=== PATIENT | female | born 1940 | race Caucasian/White ===

== ENCOUNTER 2024-12-27 17:04 | Inpatient (IN) | payer OTHER, SELFPAY ==
[2024-12-26] VITALS (14 sets, daily range): BP systolic 114–174; BP diastolic 68–104; BMI 28.2
[2024-12-26 11:56] LABS: % Basophils 0.2 % (0-2); % Eosinophils 0.1 % (0-6); % Immature Granulocytes 0.3 % (0-0.5); % Lymphocytes 14.6 % (20.5-51.1); % Monocytes 8.3 % (1.7-9.3); % Neutrophils 76.5 % (42.2-75.2); Absolute Lymphocytes 1.4 10^3/uL (1.2-3.4); Absolute Monocytes 0.8 10^3/uL (0.1-0.6); Absolute Neutrophils 7.1 10^3/uL (1.4-6.5); Hematocrit 40.8 % (37.0-47.0); Hemoglobin 13.8 g/dL (12.0-16.0); Mean Corp Hgb Conc. 33.8 g/dL (33.0-37.0); Mean Corpuscular Hgb 31.2 pg (27.0-31.0); Mean Corpuscular Volume 92.3 fL (81.0-99.0); Mean Platelet Volume 9.6 fL (7.4-10.4); Nucleated Red Blood Cells % 0 %; Platelet Count 247 10^3/uL (130-400); Red Blood Cell Count 4.42 10^6/uL (4.20-5.40); White Blood Cell Count 9.3 10^3/uL (4.8-10.8)
[2024-12-26 12:21] LABS: ALT (SGPT) 49 U/L (0-35); AST (SGOT) 39 U/L (14-36); Albumin 4.3 g/dl (3.5-5.0); Alkaline Phosphatase 159 U/L (38-126); Blood Urea Nitrogen 16 mg/dl (7-17); Calcium 9.3 mg/dl (8.4-10.2); Carbon Dioxide 26 mmol/L (22-30); Chloride 102 mmol/L (98-107); Glucose 143 mg/dl (70-99); NT-proBNP 5640 pg/ml; Potassium 4.2 mmol/L (3.5-5.1); Sodium 139 mmol/L (135-145); Troponin I 0.025 ng/ml; eGFR > 60.00
--- NOTE | 2024-12-26 12:25 | ED.GENMED ---
History of Present Illness
<Gretel Gonsales PA-C - Last Filed: 12/26/24 19:30>
General
Chief Complaint: Abdominal Symptoms
Source: patient and family
Time Seen by Provider: 12/26/24 12:02
History of Present Illness
History of Present Illness:
84yoF with a history of atrial fibrillation on Eliquis, sick sinus syndrome s/p pacemaker, hypertension, insulin dependent diabetes, and hypothyroidism presenting with her son for evaluation of shortness of breath. Symptoms began yesterday evening.
She did not initially disclose her symptoms to her son. He noticed that she was tachypneic while walking on the steps this morning. She denies any chest pain or palpitations. She does have some discomfort in her upper abdomen and abdominal
bloating which also began yesterday. She has chronic back pain which does seem to be worse.
Past History
<Gretel Gonsales PA-C - Last Filed: 12/26/24 19:30>
Past History
ED Past Medical History: Arrthythmia, HTN, NIDDM and Other (Stroke in 2014, tachybradycardia syndrome with pacemaker, paroxysmal atrial fib on Rythmol and Eliquis)
ED Past Surgical History: Other (PPM)
Social History
Tobacco: Non-smoker
Personal:
Living: with family
Family History
Family History: Unable to obtain
Phy Exam
<Gretel Gonsales PA-C - Last Filed: 12/26/24 19:30>
General Physical Exam
General Presentation: well appearing
General Skin: warm and dry
General Habitus: normal and elderly
General Mental: alert
ENT Exam
ENT Exam: normocephalic
Cardiovascular Exam
Cardiovascular Exam: no edema (Trace pitting edema in bilateral lower extremities), irregularly irregular and tachycardia
Pulmonary Exam
Pulmonary Exam: lungs clear, no rales, no crackles, no rhonchi and other (Tachypnea noted)
Gastrointestinal Exam
Gastrointestinal Exam: normal bowel sounds, soft, non distended and other (Minimal tenderness in epigastrium. Abdomen soft. No rebound or guarding. Normoactive bowel sounds.)
Neurological Exam
Neurological Exam: alert
Alden Coma Scale
Eye Opening: Spontaneous
Verbal Response: Oriented
Motor Response: Obeys Commands
GCS Total Score: 15
Skin Exam
Skin Exam: normal color and warm/dry
Psychiatric Exam
Psychiatric Exam: normal mood/affect
Course
<Gretel Gonsales PA-C - Last Filed: 12/26/24 19:30>
Orders/Labs/Results
Orders:
Orders
12/26/24 11:39
Electrocardiogram (*1) Urgent
Reason for Study: Chest Pain
EKG- Treatment ONCE
12/26/24 11:49
Complete Blood Count/With Diff Urgent
Comprehensive Metabolic Panel Urgent
Lipase Urgent
Magnesium Urgent
NT-proBNP Urgent
TSH Urgent
Comment: LIPASE,MAG,TSH ADDED ON BY FLOOR 12:20PM 12-26-24
Troponin I Urgent
12/26/24 12:07
Interrogate Pacemaker- Treatment ONCE
12/26/24 12:23
Add On- LAB Urgent
Tests Added?: lipase, magnesium, TSH
CR Chest - 2 Views Urgent
Comment:
Reason For Exam: SOB
US Abdomen Complete/Upper Urgent
Comment:
Reason For Exam: epigastric pain
12/26/24 12:36
Diltiazem HCl [Cardizem] 20 mg IV NOW STA
12/26/24 12:46
Electrocardiogram (*1) Urgent
Reason for Study: Shortness of Breath
EKG- Treatment ONCE
12/26/24 12:50
Aspirin Chewable [Low Strength Aspirin] 324 mg PO NOW STA
12/26/24 13:41
Furosemide [Lasix] 40 mg IV NOW STA
12/26/24 Dinner
1800 calorie (15 carb) Diabetic
At Your Request: Full Participation
Does patient need a safe tray?: No
Reason for opting out of Board Hammer Operator order writing: Provider Decision
Fluid Restriction: 1800 mL/day (60 oz)
Diabetic Diet: Sodium, 2 Gram
Cholesterol Lowering
At Your Request: Full Participation
Does patient need a safe tray?: No
Reason for opting out of Board Hammer Operator order writing: Provider Decision
Fluid Restriction: 1500 mL/day (50 oz)
Cholesterol Lowering: Sodium, 2 Gram
12/26/24 15:20
Code Status As Directed
Resuscitation Status: Full Code
Activity As Directed
Activity Level: Ambulate
As Tolerated
Notify MD As Directed
Notify physician if: Bridge Admission orders placed.
Notify attending physician:
-- upon arrival to unit
OR
-- when patient is identified as an ED hold
Vital Signs As Directed
Frequency: Per unit guidelines
12/26/24 15:22
Pulse Ox/spot Check [RESP] Routine
Quantity: 1
Special Instructions: check O2 sat Q8H and at each change in oxygen liter flow and FiO2.
12/26/24 16:18
Ibuprofen [Motrin] 400 mg PO DAILYPRN PRN
12/26/24 16:20
Dextrose 50%-Water [Dextrose 50% Syringe] 12.5 grams IV [id number] PRN
Glucagon [GlucaGen] 1 mg IM PRN PRN
12/26/24 16:21
Bedside Glucose Monitoring As Directed
Frequency: AC&HS
Additional Instructions:: Change to q6h if pt on TPN, tube feeding or not eating
12/26/24 16:26
Admit Patient As Directed
Co-Sign Provider:
Level of Care: Observation services
Assign to:: Telemetry
Physician / Group: Duane Goddard MD
Diagnosis: Acute heart failure, Unknown type
Reason for Telemetry: Medication for Arrhythmia
Date to Stop Telemetry: 12/28/24
Time to Stop Telemetry: 11:00
Expected length of stay greater than two midnights?: No
ELOS- Estimated Length of Stay in days: 1
Reason for Overnight Stay: New Dysrhythmia
Polyethylene Glycol Powder [Miralax] 17 grams PO DAILYPRN PRN
12/26/24 16:27
Docusate W/Senna [Senokot-S] 1 tablet PO DAILYPRN PRN
PRN Pain Medication Management As Directed
May give lesser potent ordered pain med per pt: Yes
preference::
Protocol:: Medication orders for pain may be administered in a
manner that supports deferring to patient preference
when the pt is:
- Requesting an ordered lesser potent pain medication.
Least to most potent pain medications are defined
as: acetaminophen < NSAID < tramadol < opioids
(morphine, oxycodone, hydromorphone).
- Requesting a lesser dose of the same medication IF
ORDERED.
- Requesting a less intrusive route of administration
if both routes are prescribed by the provider (PO <
IV).
12/26/24 16:28
Magnesium Hydroxide [Milk of Magnesia] 30 ml PO NOW STA
12/26/24 16:30
Insulin Aspart Corrective Low [Novolog Flexpen-Low Resistance] See Protocol SC AC
Insulin Aspart Pen [Novolog Flexpen] 6 units SC DAILY@1630
digestive enzymes 1 cap PO AC
12/26/24 17:00
Flush (0.9% Sodium Chloride) [Flush (Nss)] See Dose Instructions IV PER PROTOCOL
Propafenone HCl [Rythmol] 150 mg PO Q8
12/26/24 18:00
Atorvastatin [Lipitor] 10 mg PO QPM
12/26/24 20:00
Apixaban [Eliquis] 5 mg PO BID
Metoprolol [Lopressor] 12.5 mg PO BID
12/26/24 22:00
Insulin Glargine Lantus [Lantus] 18 units Subcutaneous Insulin Syringe [Syringe-Insulin] 0 unit SC HS
12/27/24 06:00
Hemoglobin A1c [Glycohemoglobin (HgbA1c)] IN AM
Levothyroxine [Synthroid] 50 mcg PO DAILY @ 0600
12/27/24 07:30
Insulin Aspart Pen [Novolog Flexpen] 6 units SC DAILY@0730
12/27/24 08:00
Lactobac/Bifidobac [Visbiome] 1 cap PO DAILY
Multivitamin [Theragran] 1 tablet PO DAILY
12/27/24 11:30
Insulin Aspart Pen [Novolog Flexpen] 6 units SC DAILY@1130
12/28/24 11:00
DC Protocol for Telemetry ONCE
Abnormal Lab Results
12/26/24
11:49
MCH 31.2 H pg
(27.0-31.0)
Absolute Neuts (auto) 7.1 H 10^3/uL
(1.4-6.5)
Absolute Monos (auto) 0.8 H 10^3/uL
(0.1-0.6)
Neutrophils % 76.5 H %
(42.2-75.2)
Lymphocytes % 14.6 L %
(20.5-51.1)
Glucose 143 H mg/dl
(70-99)
AST 39 H U/L
(14-36)
ALT 49 H U/L
(0-35)
Alkaline Phosphatase 159 H U/L
(38-126)
TSH 6.04 H uIU/ml
(0.47-4.68)
12/26/24 11:49
12/26/24 11:49
Vital Signs
Initial and Last Documented VS:
Initial Vital Signs
Temp Pulse Resp BP Pulse Ox
97.9 F 66 19 151/93 94
12/26/24 11:35 12/26/24 11:35 12/26/24 11:35 12/26/24 11:35 12/26/24 11:35
Last Documented Vital Signs
Temp Pulse Resp BP Pulse Ox
97.9 F 110 29 128/93 95
12/26/24 11:35 12/26/24 19:00 12/26/24 19:00 12/26/24 19:00 12/26/24 19:00
<Cecelia Dow MD - Last Filed: 12/26/24 13:37>
Orders/Labs/Results
Orders:
Orders
12/26/24 11:39
Electrocardiogram (*1) Urgent
Reason for Study: Chest Pain
EKG- Treatment ONCE
12/26/24 11:49
Complete Blood Count/With Diff Urgent
Comprehensive Metabolic Panel Urgent
Lipase Urgent
Magnesium Urgent
NT-proBNP Urgent
TSH Urgent
Comment: LIPASE,MAG,TSH ADDED ON BY FLOOR 12:20PM 12-26-24
Troponin I Urgent
12/26/24 12:07
Interrogate Pacemaker- Treatment ONCE
12/26/24 12:23
Add On- LAB Urgent
Tests Added?: lipase, magnesium, TSH
CR Chest - 2 Views Urgent
Comment:
Reason For Exam: SOB
US Abdomen Complete/Upper Urgent
Comment:
Reason For Exam: epigastric pain
12/26/24 12:36
Diltiazem HCl [Cardizem] 20 mg IV NOW STA
12/26/24 12:46
Electrocardiogram (*1) Urgent
Reason for Study: Shortness of Breath
EKG- Treatment ONCE
12/26/24 12:50
Aspirin Chewable [Low Strength Aspirin] 324 mg PO NOW STA
12/26/24 13:41
Furosemide [Lasix] 40 mg IV NOW STA
12/26/24 Dinner
1800 calorie (15 carb) Diabetic
At Your Request: Full Participation
Does patient need a safe tray?: No
Reason for opting out of Board Hammer Operator order writing: Provider Decision
Fluid Restriction: 1800 mL/day (60 oz)
Diabetic Diet: Sodium, 2 Gram
Cholesterol Lowering
At Your Request: Full Participation
Does patient need a safe tray?: No
Reason for opting out of Board Hammer Operator order writing: Provider Decision
Fluid Restriction: 1500 mL/day (50 oz)
Cholesterol Lowering: Sodium, 2 Gram
12/26/24 15:20
Code Status As Directed
Resuscitation Status: Full Code
Activity As Directed
Activity Level: Ambulate
As Tolerated
Notify MD As Directed
Notify physician if: Bridge Admission orders placed.
Notify attending physician:
-- upon arrival to unit
OR
-- when patient is identified as an ED hold
Vital Signs As Directed
Frequency: Per unit guidelines
12/26/24 15:22
Pulse Ox/spot Check [RESP] Routine
Quantity: 1
Special Instructions: check O2 sat Q8H and at each change in oxygen liter flow and FiO2.
12/26/24 16:18
Ibuprofen [Motrin] 400 mg PO DAILYPRN PRN
12/26/24 16:20
Dextrose 50%-Water [Dextrose 50% Syringe] 12.5 grams IV [id number] PRN
Glucagon [GlucaGen] 1 mg IM PRN PRN
12/26/24 16:21
Bedside Glucose Monitoring As Directed
Frequency: AC&HS
Additional Instructions:: Change to q6h if pt on TPN, tube feeding or not eating
12/26/24 16:26
Admit Patient As Directed
Co-Sign Provider:
Level of Care: Observation services
Assign to:: Telemetry
Physician / Group: Duane Goddard MD
Diagnosis: Acute heart failure, Unknown type
Reason for Telemetry: Medication for Arrhythmia
Date to Stop Telemetry: 12/28/24
Time to Stop Telemetry: 11:00
Expected length of stay greater than two midnights?: No
ELOS- Estimated Length of Stay in days: 1
Reason for Overnight Stay: New Dysrhythmia
Polyethylene Glycol Powder [Miralax] 17 grams PO DAILYPRN PRN
12/26/24 16:27
Docusate W/Senna [Senokot-S] 1 tablet PO DAILYPRN PRN
PRN Pain Medication Management As Directed
May give lesser potent ordered pain med per pt: Yes
preference::
Protocol:: Medication orders for pain may be administered in a
manner that supports deferring to patient preference
when the pt is:
- Requesting an ordered lesser potent pain medication.
Least to most potent pain medications are defined
as: acetaminophen < NSAID < tramadol < opioids
(morphine, oxycodone, hydromorphone).
- Requesting a lesser dose of the same medication IF
ORDERED.
- Requesting a less intrusive route of administration
if both routes are prescribed by the provider (PO <
IV).
12/26/24 16:28
Magnesium Hydroxide [Milk of Magnesia] 30 ml PO NOW STA
12/26/24 16:30
Insulin Aspart Corrective Low [Novolog Flexpen-Low Resistance] See Protocol SC AC
Insulin Aspart Pen [Novolog Flexpen] 6 units SC DAILY@1630
digestive enzymes 1 cap PO AC
12/26/24 17:00
Flush (0.9% Sodium Chloride) [Flush (Nss)] See Dose Instructions IV PER PROTOCOL
Propafenone HCl [Rythmol] 150 mg PO Q8
12/26/24 18:00
Atorvastatin [Lipitor] 10 mg PO QPM
12/26/24 20:00
Apixaban [Eliquis] 5 mg PO BID
Metoprolol [Lopressor] 12.5 mg PO BID
12/26/24 22:00
Insulin Glargine Lantus [Lantus] 18 units Subcutaneous Insulin Syringe [Syringe-Insulin] 0 unit SC HS
12/27/24 06:00
Hemoglobin A1c [Glycohemoglobin (HgbA1c)] IN AM
Levothyroxine [Synthroid] 50 mcg PO DAILY @ 0600
12/27/24 07:30
Insulin Aspart Pen [Novolog Flexpen] 6 units SC DAILY@0730
12/27/24 08:00
Lactobac/Bifidobac [Visbiome] 1 cap PO DAILY
Multivitamin [Theragran] 1 tablet PO DAILY
12/27/24 11:30
Insulin Aspart Pen [Novolog Flexpen] 6 units SC DAILY@1130
12/28/24 11:00
DC Protocol for Telemetry ONCE
Abnormal Lab Results
12/26/24
11:49
MCH 31.2 H pg
(27.0-31.0)
Absolute Neuts (auto) 7.1 H 10^3/uL
(1.4-6.5)
Absolute Monos (auto) 0.8 H 10^3/uL
(0.1-0.6)
Neutrophils % 76.5 H %
(42.2-75.2)
Lymphocytes % 14.6 L %
(20.5-51.1)
Glucose 143 H mg/dl
(70-99)
AST 39 H U/L
(14-36)
ALT 49 H U/L
(0-35)
Alkaline Phosphatase 159 H U/L
(38-126)
TSH 6.04 H uIU/ml
(0.47-4.68)
12/26/24 11:49
12/26/24 11:49
Vital Signs
Initial and Last Documented VS:
Initial Vital Signs
Temp Pulse Resp BP Pulse Ox
97.9 F 66 19 151/93 94
12/26/24 11:35 12/26/24 11:35 12/26/24 11:35 12/26/24 11:35 12/26/24 11:35
Last Documented Vital Signs
Temp Pulse Resp BP Pulse Ox
97.9 F 110 29 128/93 95
12/26/24 11:35 12/26/24 19:00 12/26/24 19:00 12/26/24 19:00 12/26/24 19:00
<Gretel Gonsales PA-C - Last Filed: 12/26/24 19:30>
MDM/Problems Addressed
Differential Diagnosis Includes:
84yoF here with SOB and epigastric discomfort since last night. She is mildly tachycardic during exam with HR in the 110s. She is mildly tachypneic but is oxygenating well on room air. There is trace pitting edema to lower extremities on exam.
Differential diagnosis includes but not limited to: ACS, arrhythmia, CHF, doubt PE as patient is anticoagulated
Initial ED plan: EKG from triage reviewed which appears consistent with atrial flutter with HR of 126. There are nonspecific ST changes which are possibly rate related. Check cardiac labs, TSH, magnesium, lipase, CXR, and upper abdominal ultrasound.
<Gretel Gonsales PA-C - Last Filed: 12/26/24 19:30>
*EKG
Interpreted by ED Provider?: Yes
EKG Intrepretation Date: 12/26/24
Heart Rate: 126
Rate: tachycardiac
Rhythm: atrial flutter and PVC's
[place]: normal axis
Interval: normal interval
QRS Pattern: normal QRS
Ischemia: non-specific ST changes
*Critical Care Note
Total Time (30-74mins, 75-104mins- exclusive of procedures): Not Applicable
<Gretel Gonsales PA-C - Last Filed: 12/26/24 19:30>
Update Note
Update Note:
Labs reveal a BNP of 5000. Troponin is 0.025. Chest x-ray does not show any obvious pulmonary edema although small bilateral effusions noted on abdominal ultrasound. Repeat EKG continues to show nonspecific ST/T wave changes. 40mg IV Lasix
ordered and patient admitted for further management.
ED Attending Note
<Gretel Gonsales PA-C - Last Filed: 12/26/24 19:30>
-
Portions of this chart may have been created with voice recognition software.� Occasional wrong word or��sound alike� substitutions may have occurred due to the inherent limitations of voice recognition software.
<Cecelia Dow MD - Last Filed: 12/26/24 13:37>
ED Attending Note
Patient seen and examined by attending physician: Yes
I performed the substantive portion of visit, reviewed & personally made and approve the management plan that is documented in note by myself or ULISES.: Yes
ED Attending Note:
84-year-old female who is typically very active goes to the gym regularly etc. who was noted to develop shortness of breath last night after 8 PM. When she came down this morning to her son she was noted to be tachypneic and complained of dyspnea
which prompted her visit here. Since arrival she feels much better. She was also describing discomfort in the epigastric area but wonders if it is related to recent bouts of constipation. Patient denies leg swelling, fever, chills. She does
occasionally have a cough and feels like she needs to bring up phlegm but cannot. On exam patient overall well-appearing, smiling, pleasant. Heart irregularly irregular. Lungs very faint rales noted at bases bilaterally. No leg swelling noted.
Long discussion with son who is bedside and a fellow ED physician, we mutually suspect mild heart failure, rule out ACS. I think PE is extremely unlikely given patient's full anticoagulation. Ultrasound pending regarding epigastric discomfort and
mild LFT abnormalities. Repeat ECG not consistent with STEMI or acute ACS. Patient also denies epigastric discomfort or any chest pain.
Discharge Plan
Departure
Patient Disposition: Admit
Date of Disposition: 12/26/24
Time of Disposition: 13:45
Presentation/result/management discussed w/ accepting MD/DO: Hospitalist
Discharge Problem:
Atrial fibrillation with RVR, Acute CHF (congestive heart failure)
Interventions
Interventions:
*Risk Screen - Suicide Last Done: 12/26/24 11:38
*General Assessment Last Done: 12/26/24 11:38
*Neglect/Abuse Screening Last Done: 12/26/24 11:38
*ED COVID-19 Vaccine History Last Done: 12/26/24 11:38
JQ-Vajcow-[id number] Assessment Last Done: 12/26/24 12:22
[2024-12-26 12:38] LABS: Lipase 26 U/L (23-300); Magnesium 1.7 mg/dl (1.6-2.3)
[2024-12-26] MEDS: LOW STRENGTH ASPIRIN 324 MG PO (13:05)
[2024-12-26] MEDS: LASIX 40 MG IV (14:23)
--- NOTE | 2024-12-26 16:25 | HPS.HSE ---
Addendum entered and electronically signed by Duane Goddard MD 12/27/24 00:12:
Attending Addendum-
I performed a history and physical exam of the patient and discussed his management with the resident. I reviewed the resident's note and agree with the documented findings and plan of care CC/HPI- Presents to ED with one day worsening SOB LANE
palpitations and constipation s/p Imodium. Currently complains of increased urination s/p lasix. Feels that SOB has improved. Denies CP. Full 12 point ROS reviewed and negative except as documented Exam- vitals reviewed in EMR GEN-NAD Heart irreg
irreg tachy lungs fine crackles at bases abd soft mildly distended LE no edema
Plan:
# AE HFpEF
- from rapid a flutter
- EKG personally reviewed -consistent with atrial flutter
- Troponin negative
- As per the son, last echo was a year ago, and it did not show any decrease in ejection fraction
- s/p IV lasix x 1
- obtain records from cards
# Atrial flutter with RVR
-Patient is currently on metoprolol and propafenone
-given IV dilt x 1 with improvement
-Admit to telemetry
-Follows with Dr. Oconnor-check records
#Epigastric pain
-secondary to constipation
-Abdominal ultrasound did not suggest any small bowel obstruction
-Relieve constipation
#Diabetes mellitus-continue home dose of insulin
#Hypothyroidism-continue home dose of levothyroxine, check TSH
#Back pain/Spinal Stenosis - PT/OT, pain control
#HLD- cont atorvastatin
CODE STATUS full code
DVT prophylaxis-on Eliquis 5 mg twice daily
ACP
Patient consented to discuss, was with son , time spent explanation of advance directives, changes in health status, patient�s health care wishes if the patient becomes unable to make health decisions, goals of care, code status, and prognosis- 16
minutes
Time spent coordinating care, review of plan of care with resident, personally reviewed previous records in EMR, med rec, labs, radiology, d/w nursing, family total time documented is exclusive of any additional time listed that was spent in advance
care planning discussion -� 75 minutes
Original Note:
Family Physician
-
Family Physician: Alexandre Doran
Chief Complaint
-
Shortness of breath
History of Present Illness
Patient is an 84-year-old female with past medical history of tacky bradycardia arrhythmias, paroxysmal atrial flutter, paroxysmal atrial fibrillation with permanent pacemaker in place, hypertension, diabetes mellitus, stroke, back surgery for
spinal cord compression, and bladder uplift surgery who presented to the emergency department with complaint of shortness of breath for 1 day. She resides with her son, who noticed that the patient was short of breath and was feeling anxious. Her
son is an emergency physician, who assessed the situation and decided to bring her to the emergency department. An EKG done in the emergency department showed atrial flutter Pattern and a heart rate of 130 was noted.
In addition, she also complained of epigastric pain, that was nonradiating, nonprogressive, and crampy in nature. She also mentioned that she had started Imodium to help with stool incontinence which resulted in constipation and she had not had a
bowel movement in a week. She did had flatus and some pellet-like stools. She denies any nausea, vomiting, abdominal pain, blood per rectum, fever, weight loss or, any recent medications.
She also complained of back pain along with some discomfort in hips.
Medical History
Past Medical History
Past Medical History: Reports Arrhythmia (Sick sinus syndrome, paroxysmal atrial flutter/atrial fibrillation permanent pacemaker in place), CVA, HTN and IDDM
Past Surgical History: Reports Urological (Bladder uplift surgery) and Other (Spinal decompression surgery)
Social History
Tobacco: Non-smoker
Alcohol: None
Drug: None
Living: With Family
Employment: Not Employed
Family History
Family History: Not pertinent (Grandfather had colon cancer)
Allergies / Home Medications
Allergies reflects when Allergies were last updated in [facility].
Home Medications with original date entered in [facility]
Allergy/Medication List:
Allergies
Allergy/AdvReac Type Severity Reaction Status Date / Time
No Known Allergies Allergy Unverified 12/26/24 11:38
Home Medications
apixaban 5 mg tablet (Eliquis) 5 mg PO BID 06/03/14
atorvastatin 10 mg tablet 10 mg PO QPM 01/04/20
levothyroxine 50 mcg tablet 50 mcg PO DAILY 01/04/20
metoprolol tartrate 25 mg tablet 12.5 mg PO BID 01/04/20
propafenone 150 mg tablet 150 mg PO Q8H 01/04/20
Lactobac no.2-Bifidobac no.1-S. thermo 112.5 billion cell capsule (Visbiome) 1 cap PO DAILY 12/26/24
digestive enzymes 1 cap PO AC 12/26/24
ibuprofen 400 mg tablet 400 mg PO DAILYPRN PRN mild pain 12/26/24
insulin aspar prt-insulin aspart 100 unit/mL (70-30) subcutaneous soln (Novolog Mix 70-30 U-100 Insuln) 12 unit SC QPM 12/26/24
insulin aspar prt-insulin aspart 100 unit/mL (70-30) subcutaneous soln (Novolog Mix 70-30 U-100 Insuln) 18 unit SC DAILY 12/26/24
insulin aspart U-100 100 unit/mL subcutaneous solution 5 - 10 sliding scale dose SC AC 12/26/24
lactase 3,000 unit tablet (Lactaid) 3,000 unit PO AC 12/26/24
therapeutic multivitamin 1 tab PO DAILY 12/26/24
Review of Systems
-
A 12 point ROS was completed and negative except as noted: Yes
Physical Exam
Vital Signs
Vital Signs
Temp Pulse Resp BP Pulse Ox
97.9 F 103 16 137/88 81
12/26/24 11:35 12/26/24 15:30 12/26/24 15:30 12/26/24 15:12 12/26/24 15:12
Physical Exam
General: Well Developed, Well Nourished, No Apparent Distress, Comfortable and Conversant
HEENT: NormoCephalic, Anicteric, Moist mucous membranes and [place] Conjunctivae
Respiratory: Clear and Non Labored Respirations
Cardiac: S1/S2, Irregular Rhythm (Irregularly irregular rhythm) and Tachycardia
GI: Soft, Non Tender and Normal Bowel Sounds
Musculoskeletal: No Clubbing, No Cyanosis and No Edema
Skin: Warm and Dry
Neuro: Awake, Oriented and No Motor Deficits
Psych: Calm and Intact Judgment/Insight
Laboratory Results
-
12/26/24 11:49
12/26/24 11:49
Laboratory Results
Total Bilirubin 1.0 mg/dl (0.2-1.3) 12/26/24 11:49
AST 39 U/L (14-36) H 12/26/24 11:49
ALT 49 U/L (0-35) H 12/26/24 11:49
Alkaline Phosphatase 159 U/L (38-126) H 12/26/24 11:49
Troponin I 0.025 ng/ml 12/26/24 11:49
Lipase 26 U/L (23-300) 12/26/24 11:49
Impression/Plan
-
IMPRESSION:
Patient is an 84-year-old female with past medical history of arrhythmias including sick sinus syndrome, bradycardia, atrial flutter, atrial fibrillation, essential hypertension, diabetes mellitus, stroke who presented to the emergency room with
shortness of breath and palpitations.
Assessment/PLAN:
Shortness of breath
Most likely secondary to questionable heart failure, pleural effusion, acute on chronic heart failure, hyperthyroidism, anxiety, or less likely pulmonary embolism
EKG done-consistent with atrial flutter
TSH-pending
Troponin negative
proBNP-greater than 5000
As per the son, last echo was a year ago, and it did not show any decrease in ejection fraction
Abdominal ultrasound showed small bilateral pleural effusion
Currently patient is breathing comfortably, with no use of accessory muscles and maintaining oxygen saturation on room air
Atrial flutter
History of known atrial fibrillation
Patient is currently on rate control, rhythm control and anticoagulation
Presented with a heart rate in 130s- received 20 mg IV diltiazem and 40 mg oral Lasix
Heart rate around 100
Admit to telemetry and observe for rhythm
Follows up with Dr. Oconnor on outpatient basis
Epigastric pain
Could be secondary to constipation, stress, myocardial infarction, arrhythmia
Troponin negative
Had last bowel movement 1 week ago-after that has been having on and off pellet-like stools with flatus
Patient tried to control diarrhea with loperamide that could be leading to constipation/overflow diarrhea
History and examination benign
Abdominal ultrasound did not suggest any small bowel obstruction
Relieve constipation
Other medical conditions
Diabetes mellitus-continue home dose of insulin
Hypothyroidism-continue home dose of thyroxine
Back pain -relieve constipation and reevaluate
CODE STATUS full code
DVT prophylaxis-on Eliquis 5 mg twice daily
[2024-12-26 16:52] LABS: TSH 6.04 uIU/ml (0.47-4.68)
[2024-12-26] MEDS: LIPITOR 10 MG PO (18:30)
[2024-12-26] MEDS: RYTHMOL PO (20:46)
[2024-12-26 21:47] LABS: Glucose - Point of Care 135 mg/dl (70-99)
[2024-12-26] MEDS: LOPRESSOR 12.5 MG PO (21:48)
[2024-12-26] MEDS: ELIQUIS 5 MG PO (21:48)
[2024-12-27] MEDS: RYTHMOL 150 MG PO ×2 (01:16→08:44)
[2024-12-27] MEDS: MELATONIN 5 MG PO ×2 (01:30→20:34)
[2024-12-27 03:55] VITALS: BP 99/58
[2024-12-27] MEDS: SYNTHROID 50 MCG PO (05:10)
[2024-12-27 06:00] VITALS: BMI 28.2
[2024-12-27 07:11] VITALS: BP 147/90
[2024-12-27 07:22] LABS: % Basophils 0.3 % (0-2); % Eosinophils 0.8 % (0-6); % Immature Granulocytes 0.4 % (0-0.5); % Lymphocytes 24.3 % (20.5-51.1); % Monocytes 11.2 % (1.7-9.3); Absolute Eosinophils 0.1 10^3/uL (0-0.7); Absolute Lymphocytes 1.9 10^3/uL (1.2-3.4); Absolute Monocytes 0.9 10^3/uL (0.1-0.6); Hematocrit 39.1 % (37.0-47.0); Hemoglobin 13.5 g/dL (12.0-16.0); Mean Corp Hgb Conc. 34.5 g/dL (33.0-37.0); Mean Corpuscular Volume 89.9 fL (81.0-99.0); Nucleated Red Blood Cells % 0 %; Platelet Count 238 10^3/uL (130-400); Red Blood Cell Count 4.35 10^6/uL (4.20-5.40); Red Cell Dist. Width 12.8 % (11.5-14.5); White Blood Cell Count 7.9 10^3/uL (4.8-10.8)
[2024-12-27 07:44] LABS: Troponin I 0.018 ng/ml
[2024-12-27 07:56] LABS: ALT (SGPT) 44 U/L (0-35); AST (SGOT) 40 U/L (14-36); Albumin 3.6 g/dl (3.5-5.0); Alkaline Phosphatase 128 U/L (38-126); Blood Urea Nitrogen 15 mg/dl (7-17); Calcium 8.9 mg/dl (8.4-10.2); Carbon Dioxide 26 mmol/L (22-30); Chloride 101 mmol/L (98-107); Estimated Creatinine Clearance 52 ml/min; Glucose 234 mg/dl (70-99); Potassium 4.5 mmol/L (3.5-5.1); Sodium 135 mmol/L (135-145); Total Protein 6.5 g/dl (6.3-8.2); eGFR > 60.00
--- NOTE | 2024-12-27 07:57 | W.PN.HOSP.TC ---
Addendum entered and electronically signed by Duane Goddard MD 12/27/24 23:46:
Attending Addendum-
I performed a history and exam of the patient and discussed his management with the resident. I reviewed the resident's note and agree with the documented findings and plan of care S: Seen with son present. Still constipated. Denies LANE SOB PND or
orthopnea. Denies CP. Full 12 point ROS reviewed and negative except as documented Exam- vitals reviewed in EMR GEN-NAD Heart irreg irreg 10/27 SM @ apex lungs- fine crackles at bases abd soft mildly distended pos BS LE no edema
Plan:
# AE HF p->r EF - NEW
- likely from rapid a flutter
- Troponin negative
- check ECHO 12/27-
Normal left ventricular chamber size. Severely reduced left ventricular systolic function. Left ventricular ejection fraction is 25% Global hypokinesis.
Thickened mitral valve leaflets. Moderate mitral regurgitation.
- most recent ECHO 2013!
- cont IV lasix x 1 additional dose start PO in am
- cards consult appreciated start toprol XL and losartan
- strict I and O daily weights fluid restrict
- start farxiga
# Atrial flutter with RVR
- now rate controlled
- Patient is currently on metoprolol and propafenone?
- transition to Toprol XL
- start amiodarone loading dose
- allow Rythmol washout
- cont eliquis
- likely CV w/o PENNY on 12/29 if doesn't convert
#Epigastric pain
-secondary to constipation
-Abdominal ultrasound did not suggest any small bowel obstruction
-Relieve constipation give enema x 1
#Diabetes mellitus-uncontrolled, HBA1c- 9.0! increase home dose of insulin 70/30 (10/08) monitor closely add farxiga
#Hypothyroidism-continue home dose of levothyroxine, TSH mildly elevated, would repeat as OP in 4-6 weeks
#Back pain/Spinal Stenosis - PT/OT, pain control
#HLD- cont atorvastatin
CODE STATUS full code
DVT prophylaxis-Eliquis
Time spent coordinating care, review of plan of care with resident, personally reviewed records in EMR, med rec, consults, notes, labs, radiology, d/w nursing, POA daughter and cards � 55 mins
Original Note:
Today's Communication/Plan
-
Releive constipation
Echocardiography
Cardiology consult
Add Farxiga and increase insulin to help with diabetes control
Assessment / Plan
Assessment / Plan
IMPRESSION:
Patient is an 84-year-old female with past medical history of arrhythmias including sick sinus syndrome, bradycardia, atrial flutter, atrial fibrillation, essential hypertension, diabetes mellitus, stroke who presented to the emergency room with
shortness of breath and palpitations.
Assessment/PLAN:
Acute exacerbation of heart failure with reduced ejection fraction
EKG done-consistent with atrial flutter
Echocardiography-EF reduced at 25% with global hypokinesis-New event
Cardiology consult appreciated-patient started on metoprolol extended release due to cardiomyopathy, amiodarone 200 mg twice daily, losartan 25 mg with holding parameters
Add Farxiga for dual benefits with blood sugar control and heart failure
Input output monitoring, pressure Daily weight checks
Follow electrolytes and clinical status outpatient to avoid drying out the patient
Troponin negative
proBNP-greater than 5000
As per the son, last echo was a year ago, and it did not show any decrease in ejection fraction
Abdominal ultrasound showed small bilateral pleural effusion
Rapid atrial flutter
History of known atrial fibrillation
Patient is currently on rate control, rhythm control and anticoagulation
Presented with a heart rate in 130s- received 20 mg IV diltiazem and 40 mg oral Lasix
Heart rate stable in 80s
No arrythmmia overnight
Continue to monitor
Follows up with Dr. Oconnor on outpatient basis
Epigastric pain
Could be secondary to constipation, stress, myocardial infarction, arrhythmia
Troponin negative
Had last bowel movement 1 week ago-after that has been having on and off pellet-like stools with flatus
Patient tried to control diarrhea with loperamide that could be leading to constipation/overflow diarrhea
History and examination benign
Abdominal ultrasound did not suggest any small bowel obstruction
enema and strong bowel regimen
Relieve constipation
Other medical conditions
Diabetes mellitus- HbA1c 9-increased 3 units of insulin 70/30 in the morning and evening dose, add Farxiga
Hypothyroidism-continue home dose of thyroxine
Back pain -relieve constipation and reevaluate
CODE STATUS full code
DVT prophylaxis-on Eliquis 5 mg twice daily
Anticipated Discharge: 24 - 48 hours
Subjective/Interval History
-
Date of Service: December 27, 2024
mechanist [id number]
Resting comfortably, no shortness of breath, no palpitations, maintaining saturations on room air
Complains of bloating and constipation-3 days
Objective Data
-
Labs:
Laboratory Results
12/27/24
07:01
WBC 7.9
Hgb 13.5
Hct 39.1
Plt Count 238
Sodium 135
Potassium 4.5
Chloride 101
Carbon Dioxide 26
BUN 15
Creatinine 0.7
Glucose 234 H
Calcium 8.9
Total Bilirubin 1.0
AST 40 H
ALT 44 H
Alkaline Phosphatase 128 H
Vital Signs:
Vital Signs
Temp Pulse Resp BP Pulse Ox
98.6 F 75 16 99/58 95
12/27/24 03:55 12/27/24 03:55 12/27/24 03:55 12/27/24 03:55 12/27/24 03:55
Review of Systems
-
Abdomen/GI: Reports Constipated and Bloated
Physical Exam
-
General: Well Developed, Well Nourished and No Apparent Distress
HEENT: Normocephalic, Atraumatic and Moist Mucous Membranes
Respiratory: Decreased Breath Sounds (at lung bases)
Cardiac: Irregular Rhythm (irregularly irregular), Tachycardic and Other (no murmurs or gallops, orthopnea)
GI: Soft, Normal Bowel Sounds and Distended (mildy)
Musculoskeletal: No Clubbing, No Cyanosis and No Edema
Skin: Warm and Dry
Neuro: Awake, Oriented and No Motor Deficits
Psych: Calm
[2024-12-27 08:23] LABS: Glucose - Point of Care 294 mg/dl (70-99)
[2024-12-27] MEDS: NOVOLOG FLEXPEN-HIGH RESISTANCE 7 UNITS SC ×2 (08:40→11:24)
[2024-12-27] MEDS: LOPRESSOR 12.5 MG PO (08:42)
[2024-12-27] MEDS: VISBIOME 1 CAP PO (08:42)
[2024-12-27] MEDS: LACTAID 1 CAPSULE PO ×3 (08:42→17:42)
[2024-12-27] MEDS: MILK OF MAGNESIA 30 ML PO (08:42)
[2024-12-27] MEDS: ELIQUIS 5 MG PO ×2 (08:42→20:25)
[2024-12-27] MEDS: THERAGRAN 1 TABLET PO (08:42)
[2024-12-27 09:58] LABS: Glucose - Point of Care 258 mg/dl (70-99)
[2024-12-27] MEDS: NOVOLOG MIX 70/30 FLEXPEN 18 UNITS SC (09:59)
[2024-12-27 11:10] VITALS: BP 110/67
[2024-12-27 11:23] LABS: Glucose - Point of Care 250 mg/dl (70-99)
[2024-12-27] MEDS: MIRALAX 17 GRAMS PO (11:24)
[2024-12-27] MEDS: SENOKOT-S 1 TABLET PO (11:26)
--- NOTE | 2024-12-27 11:52 | CON.CAR ---
Addendum entered and electronically signed by Denver Morgan MD 12/27/24 16:04:
Patient seen and examined
Agree with ANT Li's note and assessment
Agree with ANT Li's plan
Reviewed the patient's device interrogation demonstrating greater than 3 years of battery and noting onset of typical appearing atrial flutter by ECG for approximately 11 days on the patient's device. She has had symptoms and signs of congestive
heart failure and her son who is a physician brought her to the emergency room due to noticing increased dyspnea. There she was noted to have an elevated proBNP although she examines today after doses of IV Lasix to nearing euvolemia without change
in renal insufficiency. She tells me that her breathing is much better although her [place] is somewhat limited in my [place] Citizen is somewhat limited.
I did have a phone conversation with her son who is an ER physician at [place] in [place]. I took time to explain plan of care and he is in full agreement.
Physical exam:
Alert and orient x 3
Nonfocal neurologically
JVP 6 to 7 cm
Cor is irregularly irregular without murmur rub or gallop
Lungs are diminished but no rales or appreciable on exam
Abdomen soft nontender positive bowel sounds
Trace extremity edema
Telemetry reviewed with occasional PVCs and periods of bigeminy
EKG reviewed
Chest x-ray personally reviewed
Labs personally reviewed
PCP: Dr. Doran
Card: Dr. John Akhtar
Impression:
Admitted with acute HF and atrial flutter 12/26/24
Acute HFrEF
Newly diagnosed CM EF 25% by echo 12/27/24
Paroxysmal typical atrial flutter
since 12/16/24 by device check in the ER 12/26/24Paroxysmal Afib
Chronic Eliquis OAC
Chronic propafenone therapy
Medtronic DC PPM
HTN
DM 2
Echo 12/15/2013: EF 55 to 60%, mild MR, trace aortic insufficiency
Echo 12/27/2024: EF 25%, global hypokinesis, moderate MR, mild TR
Plan:
-Her last dose of propafenone was this morning December 27. We will discontinue
-ECG reviewed by me shows typical atrial flutter, QTc 461
- We will plan 24-hour washout of propafenone and initiate amiodarone 200 mg 3 times daily tomorrow December 29 and monitor with daily ECG and telemetry
- Despite her history of hypothyroidism I discussed with patient and son that this is only a short term plan for antiarrhythmic drug therapy and we can always replace her with Synthroid. She is already on Synthroid and has had a relatively stable
TSH and thyroid panel
-Continue usual outpatient dose of Eliquis 5 mg BID (age 84, Cre 0.7, wt 67.727 kg)
-HRs controlled with outpatient dose of Lopressor 12.5 mg BID, will change to Toprol XL due to CM
- Will plan cardioversion without PENNY on , December 30 as she has been dutiful and taking her oral anticoagulation and has not missed any doses of medications for greater than 3 weeks.
- Her volume status appears to be nearing euvolemia and we can change her to p.o. Lasix on December 29 20 mg of Lasix daily would be reasonable
-Will add losartan 25 mg daily and hold for SBP less than 100 and change Toprol to XL given her cardiomyopathy
- I suspect her cardiomyopathy would recover quickly in sinus rhythm although in parallel we should plan chemical stress testing and a visit with her outpatient criminal judge Dr. Juliane Zaidi to consider other rhythm control options such
as PVI�CTI flutter ablation. Her device was interrogated which was implanted in 2016 demonstrating arrhythmia as above
- Discussed plan of care as above with son by phone who is in full agreement and I provided my contact information to son if he has further questions
Addendum entered and electronically signed by Zari Li PA-C 12/27/24 15:04:
.
Original Note:
Consultation
Consultation Request
Date/Time Consultation Requested: 12/27/24
Date/Time Consultation Performed: 12/27/24
Requesting Provider: Dr. Vicente and Dr. Goddard
Performing Provider: Dr. Camarillo
Reason for Consultation: Acute HF, newly diagnosed CM, recurrent atrial flutter
Medical History
-
History of Present Illness:
Patient came to the ER yesterday with LANE and was admitted with acute HF and atrial flutter, cardiology is now consulted. Patient was at home with her son who is an ER physician. About a week and a half ago the patient accidentally drank a small
amount of household hat cleaner, Fabulouso. After drinking the small amount of household hat cleaner she had some retching to vomit, but no other symptoms. They thought she was doing fine until yesterday when she walked downstairs in the home with
complaints of LANE and she was tachycardic so her son brought her to [facility] ER and patient was found to be in acute HF with proBNP 5640. CXR did not show overt HF. ECG looked like typical atrial flutter and when her Medtronic PPM was interrogated in
the ER it looked as though she had been out of rhythm for about 11 days, but no symptoms of palpitations. Patient was given Lasix 40 mg IV x 1 with increased urine output, patient was not taking a loop diuretic prior to admission. Patient had echo
this morning her EF is newly reduced at 25% with global hypokinesis. Patient with known paroxysmal A-fib and is chronically on propafenone 150 mg TID. Patient is also chronically on Eliquis 5 mg BID.
PMH:
Paroxysmal Afib
Chronic Eliquis OAC
Chronic propafenone therapy
Medtronic DC PPM
HTN
DM 2
Past Medical History
Past Medical History: Other (in HPI)
Past Surgical History: Cardiac (Medtronic PPM)
Social History
Tobacco: Non-Smoker
Alcohol: None
Drug: None
Personal:
Living: With Family (lives with her son who is an ER physician)
Family History
Family History: Cancer and Diabetes
Allergies / Home Medications
Allergy/AdvReac Type Severity Reaction Status Date / Time
No Known Allergies Allergy Unverified 12/26/24 11:38
�Medication �Instructions �Recorded �Confirmed �Type
apixaban 5 mg tablet (Eliquis) 5 mg PO BID Blood Clot 06/03/14 12/26/24 History
Prevention/Tx
atorvastatin 10 mg tablet 10 mg PO QPM High Cholesterol 01/04/20 12/26/24 History
levothyroxine 50 mcg tablet 50 mcg PO DAILY Thyroid 01/04/20 12/26/24 History
metoprolol tartrate 25 mg tablet 12.5 mg PO BID Blood Pressure 01/04/20 12/26/24 History
propafenone 150 mg tablet 150 mg PO Q8H Heart 01/04/20 12/26/24 History
Disease/Condition
Lactobac no.2-Bifidobac no.1-S. 1 cap PO DAILY Supplement 12/26/24 12/26/24 History
thermo 112.5 billion cell capsule
(Visbiome)
digestive enzymes 1 cap PO AC Supplement 12/26/24 12/26/24 History
ibuprofen 400 mg tablet 400 mg PO DAILYPRN PRN mild pain 12/26/24 12/26/24 History
insulin aspar prt-insulin aspart 12 unit SC QPM Diabetes 12/26/24 12/26/24 History
100 unit/mL (70-30) subcutaneous
soln (Novolog Mix 70-30 U-100
Insuln)
insulin aspar prt-insulin aspart 18 unit SC DAILY Diabetes 12/26/24 12/26/24 History
100 unit/mL (70-30) subcutaneous
soln (Novolog Mix 70-30 U-100
Insuln)
insulin aspart U-100 100 unit/mL 5 - 10 sliding scale dose SC AC 12/26/24 12/26/24 History
subcutaneous solution Diabetes
lactase 3,000 unit tablet (Lactaid) 3,000 unit PO AC Supplement 12/26/24 12/26/24 History
therapeutic multivitamin 1 tab PO DAILY Supplement 12/26/24 12/26/24 History
Review of Systems
-
History Source: Patient and Family (son who is an ER physician)
All other systems: Negative unless noted
Physical Exam
Vital Signs
Temp Pulse Resp BP Pulse Ox
98.3 F 99 18 147/90 98
12/27/24 07:11 12/27/24 08:42 12/27/24 07:11 12/27/24 08:42 12/27/24 07:11
GEN: NAD. AAOx3 using son as vp ad sales west
HEENT: EOMI, MMM
LUNGS: RA. CTA B/L, no wheeze
CV: Atrial flutter on tele. Reg irreg, S1/S2, no murmur
ABD: soft, BS+, NT, ND
EXT: No clubbing, cyanosis, lesions or edema B/L
NEURO: Gross non-focal
SKIN: Warm, dry and pink. No rash
Lab Results
12/27/24 07:01
12/27/24 07:01
Troponin I 0.018 ng/ml 12/27/24 07:01
Lmw-P-Cysmlafsdwq Pept 5640 pg/ml 12/26/24 11:49
Impression / Plan
-
PCP: Dr. Doran
Card: Dr. John Akhtar
Impression:
Admitted with acute HF and atrial flutter 12/26/24
Acute HFrEF
Newly diagnosed CM EF 25% by echo 12/27/24
Paroxysmal typical atrial flutter
since 12/16/24 by device check in the ER 12/26/24
Paroxysmal Afib
Chronic Eliquis OAC
Chronic propafenone therapy
Medtronic DC PPM
HTN
DM 2
Echo 12/15/2013: EF 55 to 60%, mild MR, trace aortic insufficiency
Echo 12/27/2024: EF 25%, global hypokinesis, moderate MR, mild TR
Plan:
-Patient came to the ER yesterday with LANE and was admitted with acute HF and atrial flutter, cardiology is now consulted. Patient was at home with her son who is an ER physician. About a week and a half ago the patient accidentally drank a small
amount of household hat cleaner, Fabulouso. After drinking the small amount of household hat cleaner she had some retching to vomit, but no other symptoms. They thought she was doing fine until yesterday when she walked downstairs in the home with
complaints of LANE and she was tachycardic so her son brought her to [facility] ER and patient was found to be in acute HF with proBNP 5640. CXR did not show overt HF. ECG looked like typical atrial flutter and when her Medtronic PPM was interrogated in
the ER it looked as though she had been out of rhythm for about 11 days, but no symptoms of palpitations. Patient was given Lasix 40 mg IV x 1 with increased urine output, patient was not taking a loop diuretic prior to admission. Patient had echo
this morning her EF is newly reduced at 25% with global hypokinesis. Patient with known paroxysmal A-fib and is chronically on propafenone 150 mg TID. Patient is also chronically on Eliquis 5 mg BID.
-ECG reviewed by me shows typical atrial flutter, QTc 461
-Patient with known paroxysmal A-fib, but now appears to be in typical atrial flutter and has been out of rhythm for 11 days by device check. Talked with patient's son who is an ER physician and we made a plan to stop propafenone due to newly
diagnosed CM. Will check with EP on alternative AAD.
-Amiodarone as a potential alternative AAD, but patient does have a history of hypothyroidism. Tikosyn would also be an option.
-Continue usual outpatient dose of Eliquis 5 mg BID (age 84, Cre 0.7, wt 67.727 kg)
-HRs controlled with outpatient dose of Lopressor 12.5 mg BID, will change to Toprol XL due to CM
-Patient could be considered for eventual CV as well pending AAD selection
-Newly diagnosed acute HF and newly diagnosed CM. This could be a tachycardia mediated CM. Troponin normal and hypokinesis is global. No chest pain. Plan is to focus on rate and then rhythm control.
-Changing Lopressor to Toprol XL due to CM
-Will add losartan 25 mg daily and hold for SBP less than 100
-No appreciable diuresis as the ER weight is not correct. Will given another Lasix 40 mg IV x1 now and then daily. Optimize volume status before attempting rhythm control.
-Patient was not taking a loop diuretic prior to admission.
[2024-12-27] MEDS: LASIX 40 MG IV (12:10)
[2024-12-27] MEDS: LACTULOSE ENEMA 300 ML RECTAL (13:32)
[2024-12-27 14:00] LABS: Free T4 1.24 ng/dl (0.78-2.19)
--- NOTE | 2024-12-27 15:06 | W.CARD.DEVCH ---
Cardiac Device Check
-
Device: Pacemaker
Foreclosure Paralegal: Medtronic
The patient's device was interrogated with assistance of the device statement services representative followed by a complete physician review. The device had normal function. No abnormalities seen.
3 years battery longevity, 11 days with more than 6 hours AT/AF
--- NOTE | 2024-12-27 15:18 | CM ---
Met with patient to obtain information for assessment. Patient deferred to her son as he speaks on her behalf. Placed a call to patient's son Kulwinder, who answered and stated that he could talk. He stated that patient lives with him in a two story home
with one step to enter. He described her as supervision for all ADLs, personal care, dressing and bathing. She can do systems management consultant, cook, clean and do laundry. Her son is able to transport her to her appointments and assists with the shopping.
She has a walker, a shower chair, and a grab bar in the shower. She has never had VN services or been to a SNF.
Patient has a prescription plan and uses, [facility] in [place] for all of her medications.
Patient's PCP is Dr. Doran.
OBS status explained to son. He was agreeable. It is signed on chart.
Plan: Case management will continue to follow and assist with discharge planning. Patient's son would like for patient to return home when stable.
[2024-12-27 15:34] VITALS: BP 127/78
[2024-12-27 16:17] LABS: Glucose - Point of Care 91 mg/dl (70-99)
[2024-12-27] MEDS: NOVOLOG FLEXPEN-HIGH RESISTANCE SC (17:11)
[2024-12-27] MEDS: LIPITOR 10 MG PO (17:42)
--- NOTE | 2024-12-27 18:33 | PTCARENOTE ---
Notified resident of sugar of 91. Insulin 70/30 15units due, resident gave ok to give with dinner. Pt tray just arrived, dose administered.
[2024-12-27] MEDS: NOVOLOG MIX 70/30 FLEXPEN 15 UNITS SC (18:35)
[2024-12-27 19:22] VITALS: BP 128/75
[2024-12-27] MEDS: TOPROL XL 12.5 MG PO (20:25)
[2024-12-27 21:42] LABS: Glucose - Point of Care 168 mg/dl (70-99)
[2024-12-27 23:00] VITALS: BP 100/78
[2024-12-28] VITALS (7 sets, daily range): BP systolic 91–133; BP diastolic 54–75; PULSE 74; O2SAT 97; BMI 28.4
[2024-12-28] MEDS: SYNTHROID 50 MCG PO (05:24)
--- NOTE | 2024-12-28 08:23 | W.PN.HOSP.TC ---
Addendum entered and electronically signed by Duane Goddard MD 12/28/24 22:05:
Attending Addendum-
I performed a history and exam of the patient and discussed his management with the resident. I reviewed the resident's note and agree with the documented findings and plan of care S: Seen with son present. Feels greatly improved after having a BM.
Denies LANE SOB PND or orthopnea. Denies CP. Did feel palps this am. Full 12 point ROS reviewed and negative except as documented Exam- vitals reviewed in EMR GEN-NAD Heart irreg irreg 10/27 SM @ apex lungs- fine crackles at bases abd soft mildly
distended pos BS LE no edema
Plan:
# AE HF p->r EF - NEW
- likely from tachyarrhythmia
- Troponin negative
- ECHO 12/27-
Normal left ventricular chamber size. Severely reduced left ventricular systolic function. Left ventricular ejection fraction is 25% Global hypokinesis.
Thickened mitral valve leaflets. Moderate mitral regurgitation.
- most recent ECHO 2013!
- start PO lasix (2 doses IV)
- cards consult appreciated cont toprol XL and losartan
- strict I and O daily weights fluid restrict
- start farxiga
# Atrial flutter with RVR
- now rate controlled
- Patient was on metoprolol tartrate and propafenone
- DC rhythmol, start Toprol XL
- start amiodarone loading dose
- allow Rythmol washout
- cont eliquis
- CV w/o PENNY on 12/29
#Epigastric pain
-secondary to constipation
-Abdominal ultrasound did not suggest any small bowel obstruction
-resolved s/p BM
#Diabetes mellitus-uncontrolled, HBA1c- 9.0! cont increased home dose of insulin 70/30 (10/08) monitor closely cont farxiga
#Hypothyroidism-continue home dose of levothyroxine, TSH mildly elevated, would repeat as OP in 4-6 weeks
#Back pain/Spinal Stenosis - PT/OT, pain control
#HLD- cont atorvastatin
CODE STATUS full code
DVT prophylaxis-Eliquis
Time spent coordinating care, review of plan of care with resident, personally reviewed records in EMR, med rec, consults, notes, labs, radiology, d/w nursing, POA and cards � 52 mins
Original Note:
Today's Communication/Plan
-
continue diuresis
Cardioversion tomorrow
Assessment / Plan
Assessment / Plan
IMPRESSION:
Patient is an 84-year-old female with past medical history of arrhythmias including sick sinus syndrome, bradycardia, atrial flutter, atrial fibrillation, essential hypertension, diabetes mellitus, stroke who presented to the emergency room with
shortness of breath and palpitations. Recent echocardiogram, consistent with newly reduced ejection fraction
Assessment/PLAN:
Acute exacerbation of heart failure with reduced ejection fraction
EKG done-consistent with atrial flutter
Known paroxysmal A-fib and is chronically on propafenone 150 mg TID. Patient is also chronically on Eliquis 5 mg BID.
Echocardiography-EF reduced at 25% with global hypokinesis-New event
Cardiology consult appreciated-patient started on metoprolol extended release due to cardiomyopathy, amiodarone 200 mg twice daily starting today, losartan 25 mg with holding parameters
Cardiology plans to do CV 12/29/24. On outpatient basis, Dr. John Akhtar, to discuss PVI/CTI flutter ablations.
Currently on farxiga 10mg and losartan 25mg
Weight increased by 1kg since yesterday-Lasix 40 mg IV daily held 12/28/24,as patient's son had concerns about overdiuresis
Troponin negative
proBNP-greater than 5000
Abdominal ultrasound showed small bilateral pleural effusion
Rapid atrial flutter
History of known atrial fibrillation
Patient is currently on rate control, rhythm control and anticoagulation
Heart rate stable in 80s
Continue to monitor
Follows up with Dr. Oconnor on outpatient basis
Epigastric pain
Troponin negative
Had bowel movement yesterday,feeling well
On bowel regimen
Other medical conditions
Diabetes mellitus- HbA1c 9-21 units of insulin 70/30 in the morning and 15 units evening dose,along with Farxiga, blood sugar 159 today
Hypothyroidism-continue home dose of thyroxine
Back pain -secondary to arthritis as per patient,uses voltaren cream at home
CODE STATUS full code
DVT prophylaxis-on Eliquis 5 mg twice daily
Anticipated Discharge: 24 - 48 hours
Subjective/Interval History
-
Date of Service: December 28, 2024
Patient had bowel movement yesterday, abdominal pain relieved, slept much better
Patient propped up, states that she feels it uncomfortable when she lies down to sleep flat
Also complained of pain in back and legs due to arthritis
Objective Data
-
Vital Signs:
Vital Signs
Temp Pulse Resp BP Pulse Ox
98.2 F 72 16 121/71 98
12/28/24 03:40 12/28/24 03:40 12/28/24 03:40 12/28/24 03:40 12/28/24 03:40
I&O
12/27/24 12/28/24 12/29/24
06:59 06:59 06:59
Intake Total 1080 / 1080
Balance 1080 / 1080
Review of Systems
-
All other systems: Reviewed and negative
Physical Exam
-
General: Well Developed, Well Nourished and Other (Lying in bed propped up at an angle of 45 degree)
HEENT: Normocephalic, Atraumatic and Moist Mucous Membranes
Respiratory: Decreased Breath Sounds and Other (Bilateral fine crackles at lung bases)
Cardiac: Irregular Rhythm and Other (Heart rate 72, no murmur rub or gallop)
GI: Soft, Nontender and Normal Bowel Sounds
Musculoskeletal: No Clubbing, No Cyanosis and No Edema
Skin: Warm and Dry
Neuro: Awake, Oriented, No Motor Deficits and Other (Uses a roller stroller for ambulation)
Psych: Calm
[2024-12-28 08:25] LABS: Glucose - Point of Care 159 mg/dl (70-99)
[2024-12-28] MEDS: PACERONE 200 MG PO ×2 (08:46→19:37)
[2024-12-28] MEDS: FARXIGA 10 MG PO (08:46)
[2024-12-28] MEDS: THERAGRAN 1 TABLET PO (08:46)
[2024-12-28] MEDS: COZAAR 25 MG PO (08:46)
[2024-12-28] MEDS: ELIQUIS 5 MG PO ×2 (08:46→19:37)
[2024-12-28] MEDS: VISBIOME 1 CAP PO (08:46)
[2024-12-28] MEDS: TOPROL XL 12.5 MG PO ×2 (08:46→19:37)
[2024-12-28] MEDS: LACTAID 1 CAPSULE PO ×3 (08:46→17:19)
[2024-12-28] MEDS: NOVOLOG MIX 70/30 FLEXPEN 21 UNITS SC (08:47)
[2024-12-28] MEDS: NOVOLOG FLEXPEN-HIGH RESISTANCE 2 UNITS SC ×3 (08:48→17:20)
[2024-12-28 09:03] LABS: % Basophils 0.4 % (0-2); % Immature Granulocytes 0.1 % (0-0.5); % Lymphocytes 26.8 % (20.5-51.1); % Monocytes 11.9 % (1.7-9.3); % Neutrophils 59.8 % (42.2-75.2); Absolute Eosinophils 0.1 10^3/uL (0-0.7); Absolute Lymphocytes 1.9 10^3/uL (1.2-3.4); Absolute Monocytes 0.8 10^3/uL (0.1-0.6); Absolute Neutrophils 4.2 10^3/uL (1.4-6.5); Hematocrit 39.4 % (37.0-47.0); Hemoglobin 13.2 g/dL (12.0-16.0); Mean Corp Hgb Conc. 33.5 g/dL (33.0-37.0); Mean Corpuscular Hgb 30.8 pg (27.0-31.0); Mean Corpuscular Volume 91.8 fL (81.0-99.0); Nucleated Red Blood Cells % 0 %; Platelet Count 251 10^3/uL (130-400); Red Blood Cell Count 4.29 10^6/uL (4.20-5.40); White Blood Cell Count 7.1 10^3/uL (4.8-10.8)
[2024-12-28 09:35] LABS: ALT (SGPT) 36 U/L (0-35); AST (SGOT) 29 U/L (14-36); Albumin 3.6 g/dl (3.5-5.0); Alkaline Phosphatase 128 U/L (38-126); Blood Urea Nitrogen 14 mg/dl (7-17); Calcium 8.5 mg/dl (8.4-10.2); Carbon Dioxide 30 mmol/L (22-30); Chloride 99 mmol/L (98-107); Estimated Creatinine Clearance 52 ml/min; Glucose 171 mg/dl (70-99); Magnesium 2.1 mg/dl (1.6-2.3); Potassium 4.2 mmol/L (3.5-5.1); Sodium 137 mmol/L (135-145); Total Bilirubin 0.8 mg/dl (0.2-1.3); Total Protein 6.2 g/dl (6.3-8.2); eGFR > 60.00
[2024-12-28 12:21] LABS: Glucose - Point of Care 159 mg/dl (70-99)
--- NOTE | 2024-12-28 12:55 | W.PN.CARDCBS ---
Addendum entered and electronically signed by Salty Trivedi MD 12/28/24 13:52:
I saw and examined the patient.
The RN NEW GRAD or PA's note was reviewed and I agree with the note.
Comment: General: Well developed, well nourished in NAD.
Neck: Supple, no JVD, HJR, carotids +2 B/L, no bruits bilaterally.
Heart: Non displaced PMI, irregular, no murmurs, No S3, S4, no rubs.
Lungs: Scattered rhonchi
Extremities: No clubbing, cyanosis or edema bilaterally.
Neuro: Grossly nonfocal, awake, alert and oriented x3.
Continue amiodarone with plans for cardioversion on , December 29. Hopefully reduced ejection fraction is due to tachyarrhythmia. Now on p.o. Lasix.
Original Note:
Today's Communication / Plan
-
CV in AM
Cont amiodarone
Changed to Lasix 20 mg PO daily
Impression / Plan
-
PCP: Dr. Doran
Card: Dr. John Akhtar
Impression:
Admitted with acute HF and atrial flutter 12/26/24
Acute HFrEF
Newly diagnosed CM EF 25% by echo 12/27/24
Paroxysmal typical atrial flutter
since 12/16/24 by device check in the ER 12/26/24
Paroxysmal Afib
Chronic Eliquis OAC
Chronic propafenone therapy
Medtronic DC PPM
HTN
DM 2
Echo 12/15/2013: EF 55 to 60%, mild MR, trace aortic insufficiency
Echo 12/27/2024: EF 25%, global hypokinesis, moderate MR, mild TR
Plan:
-Weight is up 1 lb overnight despite Lasix 40 mg IV daily. Patient was not taking a loop diuretic prior to admission.
-Lasix 40 mg IV daily held 12/28/24 because patient's son was not sure that patient needed additional diuresis.
-HF and CM are new diagnoses this admission. This could be a tachycardia mediated CM. Troponin normal and hypokinesis is global. No chest pain. Plan is to focus on rate and then rhythm control. Will pursue outpatient stress test in the next month.
-Outpatient dose of Lopressor changed to Toprol XL 12.5 mg BID
-New to losartan 25 mg daily
-New to Farxiga 10 mg daily
-Patient with known paroxysmal A-fib, found to be in typical atrial flutter starting 12/16/24 by device check. Remains in typical atrial flutter on ECG reviewed by me 12/28/24, QTc 326 ms
-Outpatient dose of propafenone 150 mg TID stopped and last dose received was 12/27/24 AM.
-New to amiodarone 200 mg BID 12/28/24 AM. Repeat ECG to follow QTc in AM, ordered by me
-Continue usual outpatient dose of Eliquis 5 mg BID (age 84, Cre 0.7, wt 67.727 kg)
-HRs controlled with outpatient dose of Lopressor 12.5 mg BID, will change to Toprol XL due to CM
-Will plan on CV 12/29/24. Also arranging for outpatient appt with her primary it sales executive/EP, Dr. John Akhtar, to discuss PVI/CTI flutter ablations.
HPI: Patient came to the ER yesterday with LANE and was admitted with acute HF and atrial flutter, cardiology is now consulted. Patient was at home with her son who is an ER physician. About a week and a half ago the patient accidentally drank a
small amount of household supervisor bottle house cleaners, Fabulouso. After drinking the small amount of household supervisor bottle house cleaners she had some retching to vomit, but no other symptoms. They thought she was doing fine until yesterday when she walked downstairs in the home with
complaints of LANE and she was tachycardic so her son brought her to [facility] ER and patient was found to be in acute HF with proBNP 5640. CXR did not show overt HF. ECG looked like typical atrial flutter and when her Medtronic PPM was interrogated in
the ER it looked as though she had been out of rhythm for about 11 days, but no symptoms of palpitations. Patient was given Lasix 40 mg IV x 1 with increased urine output, patient was not taking a loop diuretic prior to admission. Patient had echo
this morning her EF is newly reduced at 25% with global hypokinesis. Patient with known paroxysmal A-fib and is chronically on propafenone 150 mg TID. Patient is also chronically on Eliquis 5 mg BID.
Progress Note - Electronic Engineering Technician
Subjective
Date of Service: December 28, 2024
Less bloated, no palpitations
Objective
Labs:
12/28/24 08:38
12/28/24 08:38
Labs
Hgb 13.2 g/dL (12.0-16.0) 12/28/24 08:38
Hct 39.4 % (37.0-47.0) 12/28/24 08:38
Plt Count 251 10^3/uL (130-400) 12/28/24 08:38
Sodium 137 mmol/L (135-145) 12/28/24 08:38
Potassium 4.2 mmol/L (3.5-5.1) 12/28/24 08:38
BUN 14 mg/dl (7-17) 12/28/24 08:38
Creatinine 0.7 mg/dL (0.6-1.0) 12/28/24 08:38
Glucose 171 mg/dl (70-99) H 12/28/24 08:38
Troponins
12/26/24 12/27/24
11:49 07:01
Troponin I 0.025 0.018
Vital Signs and I&O:
Vital Signs
Temp Pulse Resp BP Pulse Ox
97.9 F 74 16 113/54 98
12/28/24 11:59 12/28/24 11:59 12/28/24 11:59 12/28/24 11:59 12/28/24 11:59
Vital Signs
Temp Pulse Resp BP Pulse Ox
97.9 F 74 16 113/54 98
12/28/24 11:59 12/28/24 11:59 12/28/24 11:59 12/28/24 11:59 12/28/24 11:59
Intake & Output
12/26/24 12/27/24 12/28/24 12/29/24
06:59 06:59 06:59 06:59
Intake Total 1080 / 1080
Balance 1080 / 1080
Physical Exam
Physical Exam
GEN: AAOx3 using son as farm machine tender
HEENT: EOMI
LUNGS: RA. No wheeze
CV: Atrial flutter on tele.
ABD: ND
EXT: No edema B/L
NEURO: Gross non-focal
SKIN: No rash
[2024-12-28] MEDS: LASIX 20 MG PO (13:33)
[2024-12-28 17:14] LABS: Glucose - Point of Care 180 mg/dl (70-99)
[2024-12-28] MEDS: LIPITOR 10 MG PO (17:19)
[2024-12-28] MEDS: NOVOLOG MIX 70/30 FLEXPEN 15 UNITS SC (17:20)
[2024-12-28 22:53] LABS: Glucose - Point of Care 114 mg/dl (70-99)
[2024-12-29] VITALS (7 sets, daily range): BP systolic 108–158; BP diastolic 58–90; BMI 28.0
--- NOTE | 2024-12-29 03:36 | PTCARENOTE ---
pt npo per orders
[2024-12-29] MEDS: SYNTHROID 50 MCG PO (04:58)
[2024-12-29 05:05] LABS: Glucose - Point of Care 122 mg/dl (70-99)
[2024-12-29] MEDS: NOVOLOG FLEXPEN-HIGH RESISTANCE SC ×2 (05:08→13:02)
[2024-12-29] MEDS: NOVOLOG FLEXPEN-HIGH RESISTANCE 1 UNITS SC (05:10)
[2024-12-29] MEDS: LASIX 20 MG PO (07:37)
[2024-12-29] MEDS: VISBIOME 1 CAP PO (07:37)
[2024-12-29] MEDS: LACTAID 1 CAPSULE PO ×2 (07:37→17:44)
[2024-12-29] MEDS: ELIQUIS 5 MG PO ×2 (07:37→20:06)
[2024-12-29] MEDS: PACERONE 200 MG PO ×2 (07:37→20:06)
[2024-12-29] MEDS: FARXIGA 10 MG PO (07:37)
[2024-12-29] MEDS: TOPROL XL 12.5 MG PO ×2 (07:37→20:06)
[2024-12-29] MEDS: THERAGRAN 1 TABLET PO (07:37)
[2024-12-29] MEDS: COZAAR 25 MG PO (07:38)
[2024-12-29] MEDS: NOVOLOG MIX 70/30 FLEXPEN SC (07:44)
--- NOTE | 2024-12-29 08:41 | W.PN.HOSP.TC ---
Addendum entered and electronically signed by Duane Goddard MD 12/29/24 22:58:
Attending Addendum-
I performed a history and exam of the patient and discussed his management with the resident. I reviewed the resident's note and agree with the documented findings and plan of care S: seen post CV. 'i dont have any pain. can i go home?' Denies LANE
SOB PND or orthopnea. Denies CP. Full 12 point ROS reviewed and negative except as documented Exam- vitals reviewed in EMR GEN-NAD Heart RRR 10/27 SM @ apex lungs- CTA B/L abd soft mildly distended pos BS LE no edema
Plan:
# AE HF p->r EF - NEW
- likely from tachyarrhythmia
- Troponin negative
- ECHO 12/27-
Normal left ventricular chamber size. Severely reduced left ventricular systolic function. Left ventricular ejection fraction is 25% Global hypokinesis.
Thickened mitral valve leaflets. Moderate mitral regurgitation.
- most recent ECHO 2013!
- start PO lasix (s/p 2 doses IV)
- cards consult appreciated cont toprol XL and losartan
- strict I and O daily weights fluid restrict
- cont new farxiga
# Atrial flutter with RVR
- now rate controlled
- Patient was on metoprolol tartrate and propafenone
- DC rhythmol, cont Toprol XL
- cont amiodarone
- cont eliquis
- CV w/o PENNY on 12/29- successful
#Epigastric pain
-secondary to constipation
-Abdominal ultrasound did not suggest any small bowel obstruction
-resolved s/p BM
#Diabetes mellitus-uncontrolled, HBA1c- 9.0! cont increased home dose of insulin 70/30 (10/08) monitor closely cont new farxiga
#Hypothyroidism-continue home dose of levothyroxine, TSH mildly elevated, would repeat as OP in 4-6 weeks
#Back pain/Spinal Stenosis - PT/OT, pain control
#HLD- cont atorvastatin
CODE STATUS full code
DVT prophylaxis-Eliquis
Dispo DC in am to home with home health
Time spent coordinating care, review of plan of care with resident, personally reviewed records in EMR, med rec, consults, notes, labs, radiology, d/w nursing � 51 mins
Original Note:
Today's Communication/Plan
-
Cardioversion today
Observe for 24 hours
Physiotherapy
Assessment / Plan
Assessment / Plan
IMPRESSION:
Patient is an 84-year-old female with past medical history of arrhythmias including sick sinus syndrome, bradycardia, atrial flutter, atrial fibrillation, essential hypertension, diabetes mellitus, stroke who presented to the emergency room with
shortness of breath and palpitations. Recent echocardiogram, consistent with newly reduced ejection fraction
Assessment/PLAN:
Acute exacerbation of heart failure with reduced ejection fraction
EKG done-consistent with atrial flutter
Discontinued propafenone. Started on amiodarone 200 mg twice daily
Echocardiography-EF reduced at 25% with global hypokinesis-New event
Cardiology consult appreciated-patient started on metoprolol extended release due to cardiomyopathy, losartan 25 mg with holding parameters
Cardiology plans to do CV today. On outpatient basis, Dr. John Akhtar, to discuss PVI/CTI flutter ablations.
On Farxiga 10 mg daily and 20 mg of oral Lasix daily-weight decreased by 1 kg since resuming diuretics yesterday
Troponin negative
proBNP-greater than 5000
Abdominal ultrasound showed small bilateral pleural effusion
Rapid atrial flutter
History of known atrial fibrillation
Patient is currently on rate control, rhythm control and anticoagulation
Heart rate stable in 80s
Continue to monitor
Follows up with Dr. Oconnor on outpatient basis
Epigastric pain
Troponin negative
Had bowel movement yesterday,feeling well
On bowel regimen
Other medical conditions
Diabetes mellitus- HbA1c 9-21 units of insulin 70/30 in the morning and 15 units evening dose,along with Farxiga, blood sugar 122 today
Hypothyroidism-continue home dose of thyroxine-repeat TFTs in 4 to 6 weeks
Back pain -secondary to arthritis as per patient,uses voltaren cream at home-physiotherapy
CODE STATUS full code
DVT prophylaxis-on Eliquis 5 mg twice daily
Anticipated Discharge: 24 - 48 hours
Subjective/Interval History
-
Date of Service: December 29, 2024
Patient feels fine, no palpitations or shortness of breath
Complains of back pain and leg pain
Objective Data
-
Labs:
Laboratory Results
12/29/24
08:17
WBC Pending
Hgb Pending
Hct Pending
Plt Count Pending
Sodium Pending
Potassium Pending
Chloride Pending
Carbon Dioxide Pending
BUN Pending
Creatinine Pending
Glucose Pending
Calcium Pending
Total Bilirubin Pending
AST Pending
ALT Pending
Alkaline Phosphatase Pending
Vital Signs:
Vital Signs
Temp Pulse Resp BP Pulse Ox
98.1 F 81 18 122/90 98
12/29/24 07:25 12/29/24 07:25 12/29/24 07:25 12/29/24 07:25 12/29/24 07:25
I&O
12/28/24 12/29/24 12/30/24
06:59 06:59 06:59
Intake Total 1080 / 1080 360 / 360
Balance 1080 / 1080 360 / 360
Review of Systems
-
All other systems: Reviewed and negative
Physical Exam
-
General: Well Developed, Well Nourished, No Apparent Distress, Comfortable and Conversant
HEENT: Normocephalic, Atraumatic, Moist Mucous Membranes and Other (Breathing on room air)
Respiratory: Clear to Auscultation and Other (No wheezes rales or rhonchi)
Cardiac: Irregular Rhythm and Other (Irregularly irregular rhythm, heart rate 81, no murmurs or gallops)
GI: Soft, Nontender, Nondistended and Normal Bowel Sounds
Musculoskeletal: No Clubbing, No Cyanosis and No Edema
Skin: Warm and Dry
Neuro: Awake, Alert, No Motor Deficits and Other (Uses roller walker for ambulation)
Psych: Calm
[2024-12-29 08:50] LABS: % Basophils 0.4 % (0-2); % Immature Granulocytes 0.3 % (0-0.5); % Lymphocytes 21.5 % (20.5-51.1); % Monocytes 10.6 % (1.7-9.3); % Neutrophils 66.2 % (42.2-75.2); Absolute Eosinophils 0.1 10^3/uL (0-0.7); Absolute Lymphocytes 1.6 10^3/uL (1.2-3.4); Absolute Monocytes 0.8 10^3/uL (0.1-0.6); Absolute Neutrophils 4.9 10^3/uL (1.4-6.5); Hematocrit 39.6 % (37.0-47.0); Hemoglobin 13.5 g/dL (12.0-16.0); Mean Corp Hgb Conc. 34.1 g/dL (33.0-37.0); Mean Corpuscular Volume 90.8 fL (81.0-99.0); Mean Platelet Volume 10.1 fL (7.4-10.4); Nucleated Red Blood Cells % 0 %; Platelet Count 263 10^3/uL (130-400); Red Blood Cell Count 4.36 10^6/uL (4.20-5.40); Red Cell Dist. Width 12.9 % (11.5-14.5); White Blood Cell Count 7.3 10^3/uL (4.8-10.8)
[2024-12-29 10:05] LABS: ALT (SGPT) 38 U/L (0-35); AST (SGOT) 34 U/L (14-36); Albumin 3.5 g/dl (3.5-5.0); Alkaline Phosphatase 132 U/L (38-126); Blood Urea Nitrogen 18 mg/dl (7-17); Calcium 8.7 mg/dl (8.4-10.2); Carbon Dioxide 27 mmol/L (22-30); Chloride 101 mmol/L (98-107); Estimated Creatinine Clearance 45 ml/min; Glucose 170 mg/dl (70-99); Potassium 5.1 mmol/L (3.5-5.1); Sodium 136 mmol/L (135-145); Total Bilirubin 0.9 mg/dl (0.2-1.3); Total Protein 6.4 g/dl (6.3-8.2); eGFR > 60.00
--- NOTE | 2024-12-29 11:11 | CM ---
Patient doing well in therapy. Indication is for home health. Will talk to patient and her son about preference of agencies.
Plan: Case management will continue to follow and assist with discharge planning. Home, possible need for VN services/OT.
[2024-12-29 11:53] LABS: Glucose - Point of Care 145 mg/dl (70-99)
--- NOTE | 2024-12-29 12:56 | ITS.CL.CARDI ---
Threat Analyst - Cardioversion
Cardioversion
Procedure Report:
Date of Procedure: 12/29/24
Procedure: Cardioversion
Indication: Symptomatic atrial flutter
Performing Physician: Jose Rafael Camarillo MD
Technique: The patient was brought to the holding area. Signed informed consent was obtained. A time out was called and performed. The patient was anesthetized by the anesthesia service. Anticoagulation status was reviewed and appropriate. R2 pads
were placed anteriorly and posteriorly. A 200 J synchronized biphasic shock restored normal sinus rhythm without significant bradycardia. There were no complications.
Conclusion: Uncomplicated cardioversion from atrial flutter to sinus rhythm.
Recommendation: Routine post cardioversion care. 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
[2024-12-29] MEDS: LACTAID PO (13:02)
--- NOTE | 2024-12-29 13:47 | W.PN.CARDCBS ---
Addendum entered and electronically signed by Major Camarillo MD 12/29/24 19:51:
I saw and examined the patient.
The Environment Friendly Landscape Designer's note was reviewed and I agree with the note.
Comment:
GEN: No distress, awake, Ox3
HEENT: supple, anicteric, mmm
LUNGS: CTA, no wheezes/rales
CV: Reg, S1/S2, /6 syst LSB, no gallop
ABD: soft, BS+, NT/ND
EXT: No edema
NEURO: Gross non-focal
SKIN: No rash
Plan:
Back in sinus rhythm after cardioversion. Continue amiodarone 200 mg p.o. twice daily. Would discharge on 200 mg p.o. twice daily for 2 weeks and then 200 mg p.o. daily.
Continue Lasix 20 mg p.o. daily. Creatinine stable at 0.8.
Continue Eliquis 5 mg p.o. twice daily.
Continue Toprol, Cozaar, and Farxiga.
Likely stable for discharge in a.m. Would repeat echo in 6 to 8 weeks to reevaluate LVEF.
Original Note:
Today's Communication / Plan
-
Cont amiodarone 200 mg BID and at d/c 200 mg BID for 2 weeks then daily thereafter
Cont Eliquis
Cont Lasix 20 mg PO daily
Will arrange outpatient EP f/u
Impression / Plan
-
PCP: Dr. Doran
Card: Dr. John Akhtar
Impression:
Admitted with acute HF and atrial flutter 12/26/24
Acute HFrEF
Newly diagnosed CM EF 25% by echo 12/27/24
Paroxysmal typical atrial flutter
since 12/16/24 by device check in the ER 12/26/24
s/p successful CV 12/29/24
Paroxysmal Afib
Chronic Eliquis OAC
Chronic propafenone therapy
Medtronic DC PPM
HTN
DM 2
Echo 12/15/2013: EF 55 to 60%, mild MR, trace aortic insufficiency
Echo 12/27/2024: EF 25%, global hypokinesis, moderate MR, mild TR
Plan:
-Patient had a successful CV 12/29/24 for atrial flutter that started 12/16/24. Patient also has a h/o paroxysmal Afib
-Outpatient dose of propafenone 150 mg TID stopped and last dose received was 12/27/24 AM.
-New to amiodarone 200 mg BID starting 12/28/24 AM. QTc 453 ms in SR on ECG reviewed by me post-CV 12/29/24. Cont amiodarone 200 mg BID and at d/c 200 mg BID for 2 weeks then daily thereafter
-Continue usual outpatient dose of Eliquis 5 mg BID (age 84, Cre 0.7, wt 67.727 kg)
-Outpatient dose of Lopressor 12.5 mg BID changed to Toprol XL due to CM
-Arranging for outpatient appt with her primary aircraft motor mechanic/EP, Dr. John Akhtar, to discuss PVI/CTI flutter ablations.
-Weight is down 2 lbs overnight and overall down only 1-2 lbs with Lasix IV this admission. Patient was not taking a loop diuretic prior to admission. New to Lasix 20 mg PO daily
-Acute HF and CM are new diagnoses this admission. This could be a tachycardia mediated CM. Troponin normal and hypokinesis is global. No chest pain. Plan is to focus on rate and then rhythm control.
-Will pursue outpatient stress test in the next month.
-Outpatient dose of Lopressor changed to Toprol XL 12.5 mg BID
-New to losartan 25 mg daily
-New to Farxiga 10 mg daily
-Anticipate d/c to home 12/30/24
HPI: Patient came to the ER yesterday with LANE and was admitted with acute HF and atrial flutter, cardiology is now consulted. Patient was at home with her son who is an ER physician. About a week and a half ago the patient accidentally drank a
small amount of household top cleaner, Fabulouso. After drinking the small amount of household top cleaner she had some retching to vomit, but no other symptoms. They thought she was doing fine until yesterday when she walked downstairs in the home with
complaints of LANE and she was tachycardic so her son brought her to [facility] ER and patient was found to be in acute HF with proBNP 5640. CXR did not show overt HF. ECG looked like typical atrial flutter and when her Medtronic PPM was interrogated in
the ER it looked as though she had been out of rhythm for about 11 days, but no symptoms of palpitations. Patient was given Lasix 40 mg IV x 1 with increased urine output, patient was not taking a loop diuretic prior to admission. Patient had echo
this morning her EF is newly reduced at 25% with global hypokinesis. Patient with known paroxysmal A-fib and is chronically on propafenone 150 mg TID. Patient is also chronically on Eliquis 5 mg BID.
Progress Note - Heel Padder
Subjective
Date of Service: December 29, 2024
She feels better in SR
Objective
Labs:
12/29/24 08:17
12/29/24 08:17
Labs
Hgb 13.5 g/dL (12.0-16.0) 12/29/24 08:17
Hct 39.6 % (37.0-47.0) 12/29/24 08:17
Plt Count 263 10^3/uL (130-400) 12/29/24 08:17
Sodium 136 mmol/L (135-145) 12/29/24 08:17
Potassium 5.1 mmol/L (3.5-5.1) 12/29/24 08:17
BUN 18 mg/dl (7-17) H 12/29/24 08:17
Creatinine 0.8 mg/dL (0.6-1.0) 12/29/24 08:17
Glucose 170 mg/dl (70-99) H 12/29/24 08:17
Troponins
12/27/24
07:01
Troponin I 0.018
Vital Signs and I&O:
Vital Signs
Temp Pulse Resp BP Pulse Ox
98 F 76 16 158/76 97
12/29/24 11:20 12/29/24 11:20 12/29/24 11:20 12/29/24 11:20 12/29/24 11:20
Vital Signs
Temp Pulse Resp BP Pulse Ox
98 F 76 16 158/76 97
12/29/24 11:20 12/29/24 11:20 12/29/24 11:20 12/29/24 11:20 12/29/24 11:20
Intake & Output
12/27/24 12/28/24 12/29/24 12/30/24
06:59 06:59 06:59 06:59
Intake Total 1080 / 1080 360 / 360
Balance 1080 / 1080 360 / 360
Physical Exam
Physical Exam
GEN: AAOx3
HEENT: EOMI
LUNGS: RA. No wheeze
CV: SR on tele.
ABD: ND
EXT: No edema B/L
NEURO: Gross non-focal
SKIN: No rash
[2024-12-29 16:50] LABS: Glucose - Point of Care 370 mg/dl (70-99)
[2024-12-29] MEDS: LIPITOR 10 MG PO (17:44)
[2024-12-29] MEDS: NOVOLOG MIX 70/30 FLEXPEN 21 UNITS SC (17:45)
[2024-12-29] MEDS: NOVOLOG MIX 70/30 FLEXPEN 15 UNITS SC (17:52)
[2024-12-29] MEDS: NOVOLOG FLEXPEN-HIGH RESISTANCE 12 UNITS SC (18:01)
[2024-12-29 21:20] LABS: Glucose - Point of Care 213 mg/dl (70-99)
[2024-12-30 03:52] VITALS: BP 118/68
[2024-12-30] MEDS: SYNTHROID 50 MCG PO (05:09)
[2024-12-30 06:00] VITALS: BMI 27.6
[2024-12-30 07:35] VITALS: BP 137/63
[2024-12-30 07:36] LABS: % Basophils 0.4 % (0-2); % Eosinophils 1.4 % (0-6); % Immature Granulocytes 0.4 % (0-0.5); % Lymphocytes 28.1 % (20.5-51.1); % Neutrophils 58.7 % (42.2-75.2); Absolute Eosinophils 0.1 10^3/uL (0-0.7); Absolute Lymphocytes 1.6 10^3/uL (1.2-3.4); Absolute Monocytes 0.6 10^3/uL (0.1-0.6); Absolute Neutrophils 3.3 10^3/uL (1.4-6.5); Hematocrit 39.9 % (37.0-47.0); Hemoglobin 13.2 g/dL (12.0-16.0); Mean Corp Hgb Conc. 33.1 g/dL (33.0-37.0); Mean Corpuscular Hgb 30.8 pg (27.0-31.0); Mean Corpuscular Volume 93.2 fL (81.0-99.0); Mean Platelet Volume 9.6 fL (7.4-10.4); Nucleated Red Blood Cells % 0 %; Platelet Count 266 10^3/uL (130-400); Red Blood Cell Count 4.28 10^6/uL (4.20-5.40); Red Cell Dist. Width 13.2 % (11.5-14.5); White Blood Cell Count 5.7 10^3/uL (4.8-10.8)
[2024-12-30 08:09] LABS: ALT (SGPT) 34 U/L (0-35); AST (SGOT) 28 U/L (14-36); Albumin 3.6 g/dl (3.5-5.0); Alkaline Phosphatase 168 U/L (38-126); Blood Urea Nitrogen 24 mg/dl (7-17); Calcium 9.1 mg/dl (8.4-10.2); Carbon Dioxide 32 mmol/L (22-30); Chloride 105 mmol/L (98-107); Estimated Creatinine Clearance 40 ml/min; Glucose 173 mg/dl (70-99); Magnesium 2.2 mg/dl (1.6-2.3); Potassium 4.5 mmol/L (3.5-5.1); Sodium 141 mmol/L (135-145); Total Bilirubin 0.8 mg/dl (0.2-1.3); Total Protein 6.4 g/dl (6.3-8.2); eGFR > 60.00
[2024-12-30 08:18] LABS: Glucose - Point of Care 146 mg/dl (70-99)
[2024-12-30] MEDS: FARXIGA 10 MG PO (08:31)
[2024-12-30] MEDS: NOVOLOG FLEXPEN-HIGH RESISTANCE SC (08:31)
[2024-12-30] MEDS: TOPROL XL 12.5 MG PO (08:31)
[2024-12-30] MEDS: LACTAID 1 CAPSULE PO ×2 (08:31→12:16)
[2024-12-30] MEDS: THERAGRAN 1 TABLET PO (08:32)
[2024-12-30] MEDS: PACERONE 200 MG PO (08:32)
[2024-12-30] MEDS: LASIX 20 MG PO (08:32)
[2024-12-30] MEDS: VISBIOME 1 CAP PO (08:32)
[2024-12-30] MEDS: ELIQUIS 5 MG PO (08:32)
[2024-12-30] MEDS: COZAAR 25 MG PO (08:32)
--- NOTE | 2024-12-30 08:32 | W.PN.HOSP.TC ---
Addendum entered and electronically signed by Duane Goddard MD 12/30/24 22:11:
Attending Addendum-
I performed a history and exam of the patient and discussed his management with the resident. I reviewed the resident's note and agree with the documented findings and plan of care S: mild pain in legs. No other complaints denies cp palps. 'I going
home!' Denies LANE SOB PND or orthopnea. Full 12 point ROS reviewed and negative except as documented Exam- vitals reviewed in EMR GEN-NAD Heart RRR 10/27 SM @ apex lungs- CTA B/L abd soft mildly distended pos BS LE no edema
Plan:
# AE HF p->r EF - NEW
- likely from tachyarrhythmia
- Troponin negative
- ECHO 12/27-
Normal left ventricular chamber size. Severely reduced left ventricular systolic function. Left ventricular ejection fraction is 25% Global hypokinesis.
Thickened mitral valve leaflets. Moderate mitral regurgitation.
- most recent ECHO 2013!
- cont PO lasix (s/p 2 doses IV)
- cards consult appreciated cont toprol XL and losartan
- strict I and O daily weights fluid restrict
- cont new xiga
# Atrial flutter with RVR
- now rate controlled and in sinus
- Patient was on metoprolol tartrate and propafenone
- DC rhythmol, cont Toprol XL
- cont amiodarone loading dose-> daily
- cont eliquis
- CV w/o PENNY on 12/29- successful
#Epigastric pain
-secondary to constipation
-Abdominal ultrasound did not suggest any small bowel obstruction
-resolved s/p BM
#Diabetes mellitus-uncontrolled, HBA1c- 9.0! cont increased home dose of insulin 70/30 (10/08) monitor closely cont new farxiga
#Hypothyroidism-continue home dose of levothyroxine, TSH mildly elevated, would repeat as OP in 4-6 weeks
#Back pain/Spinal Stenosis - PT/OT, pain control
#HLD- cont atorvastatin
CODE STATUS full code
DVT prophylaxis-Eliquis
Dispo DC home with home health
Time spent coordinating care, DC planning, review of DC plan of care with resident, transition of care, review of records, med rec/scripts sent electronically, consults, notes, d/w consultants, nursing, family, and CM� 32 mins
Original Note:
Today's Communication/Plan
-
Plan discharge
Assessment / Plan
Assessment / Plan
IMPRESSION:
Patient is an 84-year-old female with past medical history of arrhythmias including sick sinus syndrome, bradycardia, atrial flutter, atrial fibrillation, essential hypertension, diabetes mellitus, stroke who presented to the emergency room with
shortness of breath and palpitations. Recent echocardiogram, consistent with newly reduced ejection fraction
Assessment/PLAN:
Acute exacerbation of heart failure with reduced ejection fraction
Last echo, 2013 ejection fraction normal -repeat echo 12/27/2024 severely reduced ejection fraction to 25%
Cardiology consult appreciated -acute on chronic heart failure with severely reduced ejection fraction secondary to tachyarrhythmias
Cardioversion done by cardiology successfully -rhythm reverted to normal sinus rhythm , heart rate controlled
Discontinued propafenone. Started on metoprolol extended release due to cardiomyopathy, losartan 25 mg with holding parameters, amiodarone 200 mg twice daily for 2 weeks and then 200 mg daily as per cards
On outpatient basis, Dr. John Akhtar, to discuss PVI/CTI flutter ablations.
Continue Farxiga and 20 mg of Lasix
Troponin negative
proBNP-greater than 5000
Abdominal ultrasound showed small bilateral pleural effusion
Rapid atrial flutter
History of known atrial fibrillation
Patient is currently on rate control, rhythm control and anticoagulation recommended by cards
Heart rate stable
Continue to monitor
Follows up with Dr. Oconnor on outpatient basis
Epigastric pain
Troponin negative
Since having bowel movements, feeling fine, no further reported pain
Other medical conditions
Diabetes mellitus- HbA1c 9-21 units of insulin 70/30 in the morning and 15 units evening dose,along with Farxiga, blood sugar 170 today
Hypothyroidism-continue home dose of thyroxine-repeat TFTs in 4 to 6 weeks
Back pain -secondary to arthritis as per patient,uses voltaren cream at home-physiotherapy
CODE STATUS full code
DVT prophylaxis-on Eliquis 5 mg twice daily
Anticipated Discharge: Today
Subjective/Interval History
-
Date of Service: December 30, 2024
No active issues, denies any palpitations or shortness of breath, some arthritic pain in back and legs, otherwise feels fine
Objective Data
-
Labs:
Laboratory Results
12/30/24
07:26
WBC 5.7
Hgb 13.2
Hct 39.9
Plt Count 266
Sodium 141
Potassium 4.5
Chloride 105
Carbon Dioxide 32 H
BUN 24 H
Creatinine 0.9
Glucose 173 H
Calcium 9.1
Total Bilirubin 0.8
AST 28
ALT 34
Alkaline Phosphatase 168 H
Vital Signs:
Vital Signs
Temp Pulse Resp BP Pulse Ox
97.2 F 71 16 118/68 94
12/30/24 03:52 12/30/24 03:52 12/30/24 03:52 12/30/24 03:52 12/30/24 03:52
I&O
12/29/24 12/30/24 12/31/24
06:59 06:59 06:59
Intake Total 360 / 360 480 / 480
Balance 360 / 360 480 / 480
Review of Systems
-
All other systems: Reviewed and negative
Physical Exam
-
General: Well Developed, No Apparent Distress, Comfortable and Conversant
HEENT: Normocephalic, Atraumatic, Moist Mucous Membranes and Other (Uses hearing devices)
Respiratory: Clear to Auscultation and Other (No wheezes or rhonchi, some crackles at bases)
Cardiac: Regular Rhythm, S1/S2 and Other (Heart rate 71, sinus rhythm)
GI: Soft, Nontender and Normal Bowel Sounds
Musculoskeletal: No Clubbing, No Cyanosis and No Edema
Skin: Warm and Dry
Neuro: Awake, Oriented and No Motor Deficits
Psych: Calm
[2024-12-30 11:05] VITALS: BP 161/66; PULSE 75; O2SAT 95
[2024-12-30 11:30] VITALS: BP 164/74
[2024-12-30 12:10] LABS: Glucose - Point of Care 398 mg/dl (70-99)
[2024-12-30] MEDS: NOVOLOG FLEXPEN-HIGH RESISTANCE 12 UNITS SC (12:16)
--- NOTE | 2024-12-30 16:55 | W.DCSUMMARY ---
Addendum entered and electronically signed by Duane Goddard MD 12/30/24 22:12:
Read, reviewed, and agree. See same day progress note for additional details.
Cody Goddard MD
Original Note:
Documented by User: Julio Cesar Vicente MD, Resident 12/30/24 17:11
Discharge Summary
Discharge Data
Date of Admission: 12/27/24
Date of Discharge: 12/30/24
-
Pending Results: No
Hospital Course
Discharging Physician :
Duane Goddard
Disposition :
Home with home care
Primary care physician :
Alexandre Doran MD
Principal Discharge diagnosis :
Acute on chronic heart failure with newly reduced ejection fraction/rapid atrial flutter -successful cardioversion/diabetes mellitus
Chronic Discharge diagnosis :
Paroxysmal Afib-Chronic Eliquis OAC
Medtronic DC PPM
HTN
DM 2
Bladder uplift surgery and spinal decompression surgery
Hospital Course :
Acute exacerbation of heart failure with reduced ejection fraction
Patient presented with 1 day history of shortness of breath, dyspnea on exertion, palpitations and constipations s/p Imodium
Received Lasix, shortness of breath improved, weight decreased
Echocardiography repeated-ejection fraction severely reduced to 25% as compared to last echo in 2013 when ejection fraction was normal
Cardiology consult appreciated -discontinued propafenone. Started on metoprolol extended release due to cardiomyopathy, losartan 25 mg with holding parameters, amiodarone 200 mg twice daily for 2 weeks and then 200 mg daily,Continue Farxiga and 20
mg of Lasix as per cards
On outpatient basis, Dr. John Akhtar, to discuss PVI/CTI flutter ablations.
Rapid atrial flutter
History of known atrial fibrillation
Patient was on propafenone, discontinued by cardiology, started on amiodarone in addition to extended release metoprolol and continued home dose of Eliquis
Successful cardioversion done during hospital stay
Patient rhythm reverted from atrial flutter to sinus rhythm successfully
Follows up with Dr. Oconnor on outpatient basis
Diabetes mellitus- HbA1c 9
21 units of insulin 70/30 in the morning and 15 units evening dose,along with Farxiga, blood sugar 170 today
Follow-up with PCP on outpatient basis
Important imaging findings :
Chest x-ray FINDINGS:( 12/26/2024)
The lungs appear hypoinflated. Cardiac silhouette size is within normal limits with cardiothoracic ratio of 15.0/31.2. No convincing evidence for pulmonary edema pattern with no significant pleural effusions.
Left chest wall pacemaker with lead tips over the right atrium and the right ventricle.
Surgical hardware in the lower thoracic and upper lumbar spine.
Abdominal ultrasound(12/26/2024)
IMPRESSION:
Small bilateral pleural effusions.
Normal appearance of the gallbladder with no evidence for biliary ductal dilation.
Pancreatic tail is unable to be adequately visualized. The upper abdominal IVC and upper abdominal aorta are unable to be adequately visualized.
Bioinformatics Research Technician cardioversionConclusion: Uncomplicated cardioversion from atrial flutter to sinus rhythm.
Discharge Plan
-
Patient Disposition: Home with Home Care
Discharge Diagnosis/Procedures: Acute on chronic heart failure with newly reduced ejection fraction/rapid atrial flutter -successful cardioversion/diabetes mellitus
Condition: Fair
Diet: Low Cholesterol and 2 Gram Sodium
Activity: As tolerated
Driving Restrictions: As prior to admission
Bathing Restrictions: OK to Shower
Blood Work: Repeat TSH in 4 to 6 weeks, repeat BMP in a week, repeat HbA1c in couple of months
Other Services: VN
Specialty Instructions: Weigh Daily- Call MD for wt gain/loss 3 lbs overnight/5 lbs in 1 week
Activity Restrictions/Additional Instructions:
Please continue amiodarone 200mg twice daily for 2 weeks then decrease to 200mg daily.
Instructions: *DCA Heart Failure Instructions
Referrals:
Alexandre Doran MD [Family Provider] - in less than 1 week
Maru Gutierrez CRNP [Specified Professional Personl] - 01/09/25 2:40 pm (You have a cardiology follow-up appointment at the [place] office with Dr. Power's nurse practitioner, Maru. Please call with questions)
Additional Discharge Medication Instructions: Added Lasix 20 mg once daily, losartan 25 mg daily, Farxiga 10 mg daily, metoprolol succinate extended release 12.5 mg twice daily, increased insulin 70/33 units in morning and evening. Discontinue
propafenone and added amiodarone 200 mg twice daily for 2 weeks and then 200 mg once daily.
Prescriptions:
New
amiodarone 200 mg Tablet
200 mg PO BID 14 Days Qty: 28 0RF
losartan 25 mg Tablet
25 mg PO DAILY 30 Days Qty: 30 0RF
metoprolol succinate 25 mg Tablet Extended Release 24 Hr
12.5 mg PO BID 30 Days Qty: 30 0RF
dapagliflozin propanediol 10 mg Tablet
10 mg PO DAILY 30 Days Qty: 30 0RF
furosemide 20 mg Tablet
20 mg PO DAILY 30 Days Qty: 30 0RF
Continued
Eliquis 5 MG tablet
5 mg PO BID
atorvastatin 10 MG tablet
10 mg PO QPM
levothyroxine 50 MCG tablet
50 mcg PO DAILY
digestive enzymes Capsule
1 cap PO AC
therapeutic multivitamin Tablet
1 tab PO DAILY
ibuprofen 400 mg Tablet
400 mg PO DAILYPRN PRN (Reason: mild pain)
Visbiome 112.5 billion cell Capsule
1 cap PO DAILY
Changed
insulin asp prt-insulin aspart [Novolog Mix 70-30 U-100 Insuln] 100 unit/mL (70-30) Solution
15 unit SC QPM Qty: 0 0RF
insulin asp prt-insulin aspart [Novolog Mix 70-30 U-100 Insuln] 100 unit/mL (70-30) Solution
21 unit SC DAILY Qty: 0 0RF
Discontinued
propafenone 150 MG tablet
150 mg PO Q8H
metoprolol tartrate 25 MG tablet
12.5 mg PO BID
insulin aspart U-100 100 unit/mL Solution
5 - 10 sliding scale dose SC AC
lactase [Lactaid] 3,000 unit Tablet
3,000 unit PO AC
Discharge Orders:
Discharge Patient (As Directed); Ordered 12/30/24
Ordered By: Julio Cesar Vicente
Discharge Date and Time
Discharge Date/Time: 12/30/24 14:06
Print Language: BOLIVIAN

Documented by User: Duane Goddard MD 12/30/24 22:08
Discharge Summary
Discharge Data
Date of Admission: 12/27/24
Date of Discharge: 12/30/24
Discharge Plan
-
Patient Disposition: Home with Home Care
Discharge Diagnosis/Procedures: Acute on chronic heart failure with newly reduced ejection fraction/rapid atrial flutter -successful cardioversion/diabetes mellitus
Condition: Fair
Diet: Low Cholesterol and 2 Gram Sodium
Activity: As tolerated
Driving Restrictions: As prior to admission
Bathing Restrictions: OK to Shower
Blood Work: Repeat TSH in 4 to 6 weeks, repeat BMP in a week, repeat HbA1c in couple of months
Other Services: VN
Specialty Instructions: Weigh Daily- Call MD for wt gain/loss 3 lbs overnight/5 lbs in 1 week
Activity Restrictions/Additional Instructions:
Please continue amiodarone 200mg twice daily for 2 weeks then decrease to 200mg daily.
Instructions: *DCA Heart Failure Instructions
Referrals:
Alexandre Doran MD [Family Provider] - in less than 1 week
Maru Gutierrez CRNP [Specified Professional Personl] - 01/09/25 2:40 pm (You have a cardiology follow-up appointment at the [place] office with Dr. Power's nurse practitioner, Maru. Please call with questions)
Additional Discharge Medication Instructions: Added Lasix 20 mg once daily, losartan 25 mg daily, Farxiga 10 mg daily, metoprolol succinate extended release 12.5 mg twice daily, increased insulin 70/33 units in morning and evening. Discontinue
propafenone and added amiodarone 200 mg twice daily for 2 weeks and then 200 mg once daily.
Prescriptions:
New
amiodarone 200 mg Tablet
200 mg PO BID 14 Days Qty: 28 0RF
losartan 25 mg Tablet
25 mg PO DAILY 30 Days Qty: 30 0RF
metoprolol succinate 25 mg Tablet Extended Release 24 Hr
12.5 mg PO BID 30 Days Qty: 30 0RF
dapagliflozin propanediol 10 mg Tablet
10 mg PO DAILY 30 Days Qty: 30 0RF
furosemide 20 mg Tablet
20 mg PO DAILY 30 Days Qty: 30 0RF
Continued
Eliquis 5 MG tablet
5 mg PO BID
atorvastatin 10 MG tablet
10 mg PO QPM
levothyroxine 50 MCG tablet
50 mcg PO DAILY
digestive enzymes Capsule
1 cap PO AC
therapeutic multivitamin Tablet
1 tab PO DAILY
ibuprofen 400 mg Tablet
400 mg PO DAILYPRN PRN (Reason: mild pain)
Visbiome 112.5 billion cell Capsule
1 cap PO DAILY
Changed
insulin asp prt-insulin aspart [Novolog Mix 70-30 U-100 Insuln] 100 unit/mL (70-30) Solution
15 unit SC QPM Qty: 0 0RF
insulin asp prt-insulin aspart [Novolog Mix 70-30 U-100 Insuln] 100 unit/mL (70-30) Solution
21 unit SC DAILY Qty: 0 0RF
Discontinued
propafenone 150 MG tablet
150 mg PO Q8H
metoprolol tartrate 25 MG tablet
12.5 mg PO BID
insulin aspart U-100 100 unit/mL Solution
5 - 10 sliding scale dose SC AC
lactase [Lactaid] 3,000 unit Tablet
3,000 unit PO AC
Discharge Orders:
Discharge Patient (As Directed); Ordered 12/30/24
Ordered By: Julio Cesar Vicente
Discharge Date and Time
Discharge Date/Time: 12/30/24 14:06
Print Language: BOLIVIAN
--- NOTE | 2024-12-30 17:36 | W.PN.CARDCBS ---
Today's Communication / Plan
-
Stable from a cardiac standpoint for discharge home. Outpatient cardiac follow-up arranged
Impression / Plan
-
PCP: Dr. Doran
Card: Dr. John Akhtar
Impression:
Admitted with acute HF and atrial flutter 12/26/24
Acute HFrEF
Newly diagnosed CM EF 25% by echo 12/27/24
Paroxysmal typical atrial flutter
since 12/16/24 by device check in the ER 12/26/24
s/p successful CV 12/29/24
Paroxysmal Afib
Chronic Eliquis OAC
Chronic propafenone therapy
Medtronic DC PPM
HTN
DM 2
Echo 12/15/2013: EF 55 to 60%, mild MR, trace aortic insufficiency
Echo 12/27/2024: EF 25%, global hypokinesis, moderate MR, mild TR
Plan:
-Patient had a successful CV 12/29/24 for atrial flutter that started 12/16/24. Patient also has a h/o paroxysmal Afib
-Outpatient dose of propafenone 150 mg TID stopped and last dose received was 12/27/24 AM.
-New to amiodarone 200 mg BID starting 12/28/24 AM. QTc 453 ms in SR on ECG reviewed by me post-CV 12/29/24. Cont amiodarone 200 mg BID and at d/c 200 mg BID for 2 weeks then daily thereafter
-Continue usual outpatient dose of Eliquis 5 mg BID (age 84, Cre 0.7, wt 67.727 kg)
-Outpatient dose of Lopressor 12.5 mg BID [changed to Toprol XL due to CM]
-Arranging for outpatient appt with her primary first assist/EP, Dr. John Akhtar, to discuss PVI/CTI flutter ablations.
-Weight is down 2 lbs overnight and overall down only 1-2 lbs with Lasix IV this admission. Patient was not taking a loop diuretic prior to admission. New to Lasix 20 mg PO daily
-Acute HF and CM are new diagnoses this admission. This could be a tachycardia mediated CM. Troponin normal and hypokinesis is global. No chest pain. Plan is to focus on rate and then rhythm control.
-Will pursue outpatient stress test in the next month.
-Outpatient dose of Lopressor changed to Toprol XL 12.5 mg BID
-New to losartan 25 mg daily
-New to Farxiga 10 mg daily
-Stable for discharge home today.
HPI: Patient came to the ER yesterday with LANE and was admitted with acute HF and atrial flutter, cardiology is now consulted. Patient was at home with her son who is an ER physician. About a week and a half ago the patient accidentally drank a
small amount of household home restoration service cleaner, [employer]. After drinking the small amount of household home restoration service cleaner she had some retching to vomit, but no other symptoms. They thought she was doing fine until yesterday when she walked downstairs in the home with
complaints of LANE and she was tachycardic so her son brought her to [facility] ER and patient was found to be in acute HF with proBNP 5640. CXR did not show overt HF. ECG looked like typical atrial flutter and when her Medtronic PPM was interrogated in
the ER it looked as though she had been out of rhythm for about 11 days, but no symptoms of palpitations. Patient was given Lasix 40 mg IV x 1 with increased urine output, patient was not taking a loop diuretic prior to admission. Patient had echo
this morning her EF is newly reduced at 25% with global hypokinesis. Patient with known paroxysmal A-fib and is chronically on propafenone 150 mg TID. Patient is also chronically on Eliquis 5 mg BID.
Progress Note - Db2 Systems Programmer
Subjective
Date of Service: December 30, 2024
Patient was seen and examined with son at bedside. Overall feeling well and maintaining sinus rhythm following recent cardioversion. No new complaints.
Objective
Labs:
12/30/24 07:26
12/30/24 07:26
Labs
Hgb 13.2 g/dL (12.0-16.0) 12/30/24 07:26
Hct 39.9 % (37.0-47.0) 12/30/24 07:26
Plt Count 266 10^3/uL (130-400) 12/30/24 07:26
Sodium 141 mmol/L (135-145) 12/30/24 07:
Potassium 4.5 mmol/L (3.5-5.1) 12/30/24 07:
BUN 24 mg/dl (7-17) H 12/30/24 07:
Creatinine 0.9 mg/dL (0.6-1.0) 12/30/24 07:
Glucose 173 mg/dl (70-99) H 12/30/24 07:26
Vital Signs and I&O:
Vital Signs
Temp Pulse Resp BP Pulse Ox
98.0 F 74 16 164/74 94
12/30/24 11:30 12/30/24 11:30 12/30/24 11:30 12/30/24 11:30 12/30/24 11:30
Vital Signs
Temp Pulse Resp BP Pulse Ox
98.0 F 74 16 164/74 94
12/30/24 11:30 12/30/24 11:30 12/30/24 11:30 12/30/24 11:30 12/30/24 11:30
Intake & Output
12/28/24 12/29/24 12/30/24 12/31/24
06:59 06:59 06:59 06:59
Intake Total 1080 / 1080 360 / 360 480 / 480 480 / 480
Balance 1080 / 1080 360 / 360 480 / 480 480 / 480
Physical Exam
Physical Exam
GEN: AAOx3
HEENT: mmm
LUNGS: RA. No wheeze
CV: Regular, +S1S2, 2/6 SM
ABD: ND Positive bowelSounds
EXT: No edema B/L
--- NOTE | 2025-01-02 10:58 | W.HF.CON ---
Heart Failure
- LV Function
Left ventricular function study result: LV Ejection fraction </= 35%
Ejection Fraction Percentage: 25
- ARNI
Patient already on ARNI: No
- ACEI/ARB
Patient already on ACEI/ARB: Yes
- Beta Michelle
Patient already on Evidence Based Beta Michelle: Yes
- Mineralocorticord Receptor Antagonist
Patient already on MRA: No
Heart Failure MRA Contraindication: Hypotension
- SGLT-2 Inhibitor
Patient already on SGLT-2 Inhibitor: Yes
- Afib Anticoagulation
Patient already on Anticoagulation for Afib: Yes
- NYHA CHF Classification
NYHA CHF Classification Level: Class III - Symptoms w/ min exertion, interferes w/ nml daily activity
- ACC/AHA Stage
ACC/AHA Stage: Stage C: Symptomatic Heart Failure
== END 2024-12-30 14:06 | disposition home or self-care (01) | DRG 291 ==
LOC: 4 EAST ACU 17:04
PROVIDERS: Internal Medicine Cardiovascular Disease; Physician Assistant Medical; Student in an Organized Health Care Education/Training Program; ADMITTING PHYSICIAN Family Medicine; EMERGENCY PHYSICIAN Emergency Medicine; FAMILY PHYSICIAN Internal Medicine Geriatric Medicine; OTHER PHYSICIAN Internal Medicine Cardiovascular Disease
PROC: 4B02XSZ Measurement of Cardiac Pacemaker, External Approach (ICD-10-PCS; 2024-12-27)
PROC: 5A2204Z Restoration of Cardiac Rhythm, Single (ICD-10-PCS; 2024-12-29)
DX: I11.0 Hypertensive heart disease with heart failure (principal); I50.23 Acute on chronic systolic (congestive) heart failure; I48.3 Typical atrial flutter; I48.0 Paroxysmal atrial fibrillation; Z79.01 Long term (current) use of anticoagulants; E11.9 Type 2 diabetes mellitus without complications; I42.9 Cardiomyopathy, unspecified; Z79.899 Other long term (current) drug therapy; K59.00 Constipation, unspecified; Z79.4 Long term (current) use of insulin; E03.9 Hypothyroidism, unspecified; Z79.890 Hormone replacement therapy; E78.00 Pure hypercholesterolemia, unspecified; M48.00 Spinal stenosis, site unspecified; Z86.73 Personal history of transient ischemic attack (TIA), and cerebral infarction without residual deficits; G89.29 Other chronic pain; I49.5 Sick sinus syndrome; Z95.0 Presence of cardiac pacemaker
CPT/HCPCS: 71046; 76700; 80053; 82962; 83036; 83690; 83735; 83880; 84439; 84443; 84484; 85025; 92960; 93005; 93288; 93306; 96374; 97116; 97162; 97165; 99285

== ENCOUNTER → 2025-02-02 15:04 | Outpatient (REF) | payer OTHER, SELFPAY | LOC: RCS 15:04 | PROVIDERS: ATTENDING PHYSICIAN Nurse Practitioner; FAMILY PHYSICIAN Internal Medicine Geriatric Medicine | DX: I48.0 Paroxysmal atrial fibrillation (principal); I50.20 Unspecified systolic (congestive) heart failure | CPT/HCPCS: 93306 ==

== ENCOUNTER 2025-02-20 09:21 | Emergency (ER) | payer OTHER, SELFPAY ==
[2025-02-20 09:33] VITALS: BP 163/68
[2025-02-20 10:18] VITALS: BMI 28.6
[2025-02-20 10:19] VITALS: BP 136/58
--- NOTE | 2025-02-20 12:17 | ED.GENMED ---
History of Present Illness
General
Chief Complaint: Skin Problem
Source: patient
Exam Limitations: none
Time Seen by Provider: 02/20/25 10:04
History of Present Illness
History of Present Illness:
84-year-old female brought in by her son who is an emergency physician. Has had a painful ulceration to the left foot. There has been some callus there that the son thinks is from rubbing from a shoe. No fever or chills. Started Augmentin. He
is somewhat concerned there may be fluid collection deep to this.
Past History
Past History
ED Past Medical History: Arrthythmia, HTN, NIDDM and Other (Stroke in 2014, tachybradycardia syndrome with pacemaker, paroxysmal atrial fib on Rythmol and Eliquis)
ED Past Surgical History: Other (PPM)
Social History
Tobacco: Non-smoker
Personal:
Living: with family
Family History
Family History: Unable to obtain
Review of Systems
Review of Systems
All Other Systems: Not applicable
Constitutional: Denies fever or chills
Phy Exam
Physical Exam
Physical Exam:
General: Nontoxic appearing in no distress
Skin: Warm and dry, no rash
Neuro: Alert, nontoxic, grossly nonfocal
Psychiatric: Good eye contact and appropriate
Musculoskeletal: Small open wound to the tip of the left great toe. No obvious foreign body. Area of callus surrounding this. Some mild softness to the tissue but no obvious fluctuance. No extending cellulitis. Very reasonable dorsalis pedis
and posterior tibial pulses bilaterally. No calf swelling.
Course
Orders/Labs/Results
Orders:
Orders
02/20/25 10:15
Foot, Left 3 View [CR Foot - Left Min 3 Views] Urgent
Comment:
Reason For Exam: Nonhealing ulcer left great toe
Vital Signs
Initial and Last Documented VS:
Initial Vital Signs
Temp Pulse Resp BP Pulse Ox
98.1 F 72 16 163/68 95
02/20/25 09:33 02/20/25 09:33 02/20/25 09:33 02/20/25 09:33 02/20/25 09:33
Last Documented Vital Signs
Temp Pulse Resp BP Pulse Ox
97.9 F 62 18 165/65 95
02/20/25 12:34 02/20/25 12:34 02/20/25 12:34 02/20/25 12:34 02/20/25 12:34
MDM/Problems Addressed
Differential Diagnosis Includes:
Open wound. Patient diabetic. No acute vascular issue. Not obviously a fluid collection but after further discussion with the son I elected to carefully open this up to see if there was a fluid collection or foreign body. X-ray stable.
Discharged to follow-up. Discussed with wound care
*Pulse Oximetry
SaO2: 94
Oxygen Mode of Delivery: Room air
Patient hypoxic: no
*Critical Care Note
Total Time (30-74mins, 75-104mins- exclusive of procedures): Not Applicable
Update Note
Update Note:
Procedure: Sterile digital block 1% plain at the base of the first left toe. This was followed by incision x 2 over the open wound. No drainage no foreign body.
ED Attending Note
-
Portions of this chart may have been created with voice recognition software.� Occasional wrong word or��sound alike� substitutions may have occurred due to the inherent limitations of voice recognition software.
Discharge Plan
Departure
Patient Disposition: Home (Routine Discharge)
Date of Disposition: 02/20/25
Time of Disposition: 12:19
Patient with high blood pressure during this ER visit?: Yes
Discharge Problem:
Left toe wound/ulcer
Instructions: Wound Care (DC), BLOOD PRESSURE
Prescriptions:
No Action
Eliquis 5 MG tablet
5 mg PO BID
atorvastatin 10 MG tablet
10 mg PO QPM
levothyroxine 50 MCG tablet
50 mcg PO DAILY
digestive enzymes Capsule
1 cap PO AC
therapeutic multivitamin Tablet
1 tab PO DAILY
ibuprofen 400 mg Tablet
400 mg PO DAILYPRN PRN (Reason: mild pain)
Visbiome 112.5 billion cell Capsule
1 cap PO DAILY
amiodarone 200 mg Tablet
200 mg PO BID 14 Days Qty: 28 0RF
losartan 25 mg Tablet
25 mg PO DAILY 30 Days Qty: 30 0RF
metoprolol succinate 25 mg Tablet Extended Release 24 Hr
12.5 mg PO BID 30 Days Qty: 30 0RF
dapagliflozin propanediol 10 mg Tablet
10 mg PO DAILY 30 Days Qty: 30 0RF
furosemide 20 mg Tablet
20 mg PO DAILY 30 Days Qty: 30 0RF
insulin asp prt-insulin aspart [Novolog Mix 70-30 U-100 Insuln] 100 unit/mL (70-30) Solution
15 unit SC QPM Qty: 0 0RF
insulin asp prt-insulin aspart [Novolog Mix 70-30 U-100 Insuln] 100 unit/mL (70-30) Solution
21 unit SC DAILY Qty: 0 0RF
Referrals:
Wound Care Center [Outside]
Alexandre Doran MD [Family Provider, Internal Medicine]
Activity Restrictions/Additional Instructions:
Continue the Augmentin
Daily dressing changes
Call the wound center for close follow-up. I would call today to make an appointment
I did talk to Dr. You. He is the events specialist
Interventions
Interventions:
*Risk Screen - Suicide Last Done: 02/20/25 09:33
*General Assessment Last Done: 02/20/25 09:33
*Neglect/Abuse Screening Last Done: 02/20/25 09:33
*Nursing Disposition Last Done: 02/20/25 12:34
ED-Skin Assessment Last Done: 02/20/25 10:33
Discharge Date and Time
Discharge Date/Time: 02/20/25 12:35
Print Language: AUSTRALIAN
[2025-02-20 12:34] VITALS: BP 165/65
== END 2025-02-20 12:35 | disposition home or self-care (01) ==
LOC: EMR 09:21
PROVIDERS: EMERGENCY PHYSICIAN Emergency Medicine; FAMILY PHYSICIAN Internal Medicine Geriatric Medicine
DX: S91.102A Unspecified open wound of left great toe without damage to nail, initial encounter (principal); L97.529 Non-pressure chronic ulcer of other part of left foot with unspecified severity; X58.XXXA Exposure to other specified factors, initial encounter; L84 Corns and callosities; E11.621 Type 2 diabetes mellitus with foot ulcer; I10 Essential (primary) hypertension; I48.0 Paroxysmal atrial fibrillation; Z86.73 Personal history of transient ischemic attack (TIA), and cerebral infarction without residual deficits; Z95.0 Presence of cardiac pacemaker; Z79.01 Long term (current) use of anticoagulants
CPT/HCPCS: 10140; 99283; 73630

== ENCOUNTER → 2025-02-21 08:01 | Outpatient (REF) | payer OTHER, SELFPAY | LOC: WOUND 08:01 | PROVIDERS: ATTENDING PHYSICIAN Surgery; FAMILY PHYSICIAN Internal Medicine Geriatric Medicine | DX: E11.621 Type 2 diabetes mellitus with foot ulcer (principal); L97.522 Non-pressure chronic ulcer of other part of left foot with fat layer exposed; Z79.4 Long term (current) use of insulin; E11.65 Type 2 diabetes mellitus with hyperglycemia; E11.41 Type 2 diabetes mellitus with diabetic mononeuropathy | CPT/HCPCS: 99204 ==

== ENCOUNTER → 2025-02-28 09:01 | Outpatient (REF) | payer OTHER, SELFPAY | LOC: WOUND 09:01 | PROVIDERS: ATTENDING PHYSICIAN Surgery; FAMILY PHYSICIAN Internal Medicine Geriatric Medicine | DX: E11.621 Type 2 diabetes mellitus with foot ulcer (principal); L97.522 Non-pressure chronic ulcer of other part of left foot with fat layer exposed; E11.65 Type 2 diabetes mellitus with hyperglycemia; E11.41 Type 2 diabetes mellitus with diabetic mononeuropathy; Z79.4 Long term (current) use of insulin | CPT/HCPCS: 99213 ==

== ENCOUNTER → 2025-03-01 13:48 | Outpatient (REF) | payer OTHER, SELFPAY | LOC: MRI 13:48 | PROVIDERS: ATTENDING PHYSICIAN Pain Medicine Interventional Pain Medicine; FAMILY PHYSICIAN Internal Medicine Geriatric Medicine | DX: M54.16 Radiculopathy, lumbar region (principal) | CPT/HCPCS: 72148; 76014; 76015 ==

== ENCOUNTER 2025-05-29 07:49 | Day surgery (SDC) | payer OTHER, SELFPAY ==
[2025-05-22 12:31] VITALS: BMI 28.2
[2025-05-22 13:03] LABS: Hematocrit 42.0 % (37.0-47.0); Hemoglobin 14.0 g/dL (12.0-16.0); Mean Corp Hgb Conc. 33.3 g/dL (33.0-37.0); Mean Corpuscular Volume 93.5 fL (81.0-99.0); Nucleated Red Blood Cells % 0 %; Platelet Count 266 10^3/uL (130-400); Red Cell Dist. Width 13.2 % (11.5-14.5)
[2025-05-22 13:12] LABS: INR 1.21; PT 15.6 Sec (11.4-14.6)
[2025-05-22 13:25] LABS: ALT (SGPT) 29 U/L (0-35); AST (SGOT) 33 U/L (14-36); Albumin 4.3 g/dl (3.5-5.0); Alkaline Phosphatase 150 U/L (38-126); Blood Urea Nitrogen 22 mg/dl (7-17); Calcium 9.5 mg/dl (8.4-10.2); Carbon Dioxide 30 mmol/L (22-30); Chloride 103 mmol/L (98-107); Estimated Creatinine Clearance 32 ml/min; Glucose 137 mg/dl (70-99); Magnesium 2.0 mg/dl (1.6-2.3); Potassium 4.3 mmol/L (3.5-5.1); Sodium 138 mmol/L (135-145); Total Protein 7.2 g/dl (6.3-8.2); eGFR 49.24
[2025-05-29] VITALS (10 sets, daily range): BP systolic 146–173; BP diastolic 56–92; BMI 28.2
[2025-05-29 11:22] LABS: ACT-LR - POC 308 Seconds (116-155)
[2025-05-29 11:31] LABS: Glucose - Point of Care 165 mg/dl (70-99)
[2025-05-29 11:42] LABS: ACT-LR - POC 372 Seconds (116-155)
[2025-05-29 12:05] LABS: ACT-LR - POC 340 Seconds (116-155)
--- NOTE | 2025-05-29 13:19 | ITS.CL.ABL ---
Rules Examiner - Ablation
Ablation
Procedure Report:
ELECTROPHYSIOLOGIC STUDY AND POSSIBLE ABLATION
DATE: May 29, 2025
Primary Care Provider: Dr Phu Doran
INDICATION:
Symptomatic Atrial Fibrillation.
Persistent
HISTORY: See H and P.
Symptomatic AF, poorly controlled with attempted medical therapy.
She has a history of sick sinus syndrome, Paroxysmal atrial fibrillation, CVA, diabetes, HTN, hypothyroidism, SSS, dual chamber PPM.
CHADSVASc = 8 (CHF, HTN, age > 75 yrs, CVA, DM, Female)
She is maintained on oral anticoagulation without bleeding complications. Eliquis 5 mg twice daily.
She has experienced decompensated congestive heart failure, heart failure with reduced ejection fraction in association with her atrial arrhythmias which have included both atrial fibrillation as well as typical atrial flutter.
HAS-BLED: 3
Age
Abnormal Renal Function
H/O Stroke
CHADSVASc = 8 (CHF, HTN, age > 75 yrs, CVA, DM, Female)
PRESENTING RHYTHM: SR
HISTORY: See H and P.
Symptomatic AF, poorly controlled with attempted medical therapy.
ANTIARRHYTHMIC DRUG: Amiodarone discontinued 7 days ago
ANTICOAGULATION: Apixaban 5 mg twice daily
'TIME-OUT': called and confirmed.
SEDATION/ANESTHESIA: provided via the anesthesia department using general anesthesia.
PROCEDURE:
Ultrasound Guidance with real-time visualization of needle insertion and vessel patency performed by ia for femoral venous Vascular Access.
Under real-time US guidance, the needle was advanced with negative pressure into the vein. The needle was seen entering the vessel lumen with a good return of dark red flow, the syringe was removed, non-pulsatile, dark red blood low was noted and
the wire was passed without difficulty, then the needle was removed. US confirmed the wire was in the vein, not going into an artery,
Images were taken and saved for the patient's permanent record. Imaging findings typical femoral venous anatomy. Direct visualization of needle puncture into the femoral vein was observed and recorded.
3 sheaths were inserted into the right femoral vein.
10 Fr, 10Fr, 7 Fr a 10fr sheath was then exchanged for the 16.8 Fr Faradrive deflectable sheath and dilator over a wire.
A decapolar CS catheter was positioned within the CS for mapping and pacing.
The intracardiac ultrasound catheter was positioned in the RA for continuous intracardiac ultrasound imaging.
Heparin bolus and infusion to target ACT at 300 -350 seconds was administered. Transseptal puncture was performed. This entailed advancing a sheath with dilator into the superior vena cava and withdrawing both (monitoring intracardiac ultrasound,
fluoroscopy and tip pressure) with the tip oriented toward the atrial septum. The fossa ovalis was engaged (indicated by sudden displacement of the sheath tip as well as tenting of the fossa seen on intracardiac ultrasound).
The Reppler transseptal system was used. Left atrial catheter position was confirmed by echocardiographic imaging and fluoroscopy followed by RF delivery using the Progressus system resulting in successful LA access with pressure monitoring
demonstrating LA pressure waveforms (LA mean pressure [ ] mm Hg). The sheath was advanced over the dilator and positioned in the left atrium.
The Jarquin Grid multipolar mapping catheter was initially positioned through the transseptal sheath for high density mapping.
Geometry and voltage mapping was performed using the Jarquin multipolar grid catheter. Ensite-X was utilized for three-dimensional electroanatomical mapping.
A 3-D map was created using Ensite-X in Voxel mode. A 3-D reconstructed CT image was compared to the 3-D Navex map to assist in anatomic evaluation, mapping and ablation.
The Reppler PFA catheter and system was used for cardiac ablation. Catheter positioning was guided and confirmed using both I.C.E. and fluoroscopy.
Ablation strategy included PVI as well as mapping for extra PV contributors to atrial fibrillation which would also be targeted if present.
High density electroanatomical three-dimensional mapping demonstrated four PVs: LSPV, LIPV, RSPV, RIPV.
After accomplishing pulmonary venous isolation, mapping identified additional areas likely to be extra PV contributors to atrial fibrillation. These areas demonstrated patchy low voltage as well as complex fractionated electrograms. These areas can
be sites for the formation of rotors which can drive and maintain atrial fibrillation. These areas are known to be significant contributors to initiation and perpetuation of atrial fibrillation.
Additional energy applications/additional ablation sets targeted extra PV contributors to atrial fibrillation.
Targets for additional PFA ablation included:
LA posterior wall targeted with pulsed electric field energy isolating the posterior wall of the left atrium
After ablation of the posterior wall, additional targets were addressed:
LA inferior floor
These areas were ablated using pulsed electric field energy eliminating the extra PV contributors to atrial fibrillation.
Post ablation mapping finds entrance and exit block at each of the pulmonary veins, the LA posterior wall and at the additional line at the Inferior/floor of the LA rendering the sites no longer able to contribute to atrial fibrillation.
Programmed electrostimulation including burst atrial pacing as well the delivery of decremental extrastimuli down to atrial effective refractory period and no sustained arrhythmias could be induced.
Patient with previously documented typical right atrial flutter.
This second arrhythmia was addressed next.
High density electroanatomical mapping was performed of the right atrium focusing on the cavotricuspid isthmus.
Intravenous pressures were given to obtain and maintain systolic blood pressure above 150 mmHg.
Once the Farapulse PFA catheter was positioned at the targeted site at the cavotricuspid isthmus between 6 and 7:00 in ABEL 30 degrees, 200 mcg of nitroglycerin was administered. After a 1 minute waiting period delivery of pulsed electric field
energy was applied to the cavotricuspid isthmus and a series of applications from the tricuspid annulus down to the inferior vena cava. At no point was there any ST segment elevation or hemodynamic compromise. The high density electroanatomical
mapping catheter was substituted and using differential pacing electrical block at the ablation line was demonstrated.
I.C.E. :
Pre-Ablation Post-Ablation
LVEF: 45 % 45 %
WMA: none none
Pericardial effusion: none none
LA Pressure 3 6
COMPLICATIONS:
none
SUMMARY:
- Mapping and ablation to isolate the PVs resulting in electrical isolation of the pulmonary veins
- Additional AF ablation sets X 2 after PVI (LA posterior wall, Inf/floor of the LA) resulting in elimination of the targeted extra PV contributors to atrial fibrillation.
- Mapping and ablation of second tachycardia (typical right atrial flutter)
- 3-D Electroanatomical Mapping
- Intracardiac Ultrasound
- Ultrasound guidance for vascular access
Post ablation, I discussed today's findings and results with the patient's son, JEANNE
RECOMMENDATIONS:
- Observe in monitored bed.
- Maintain oral anticoagulation.
- Stop amiodarone
-She has had multiple falls. She does have a permanent pacemaker in place to continuously assess heart rhythm. This may provide an opportunity to discontinue oral anticoagulation after at least 2 months post ablation as long as pacemaker
diagnostics show no recurrence of sustained atrial fibrillation or atrial flutter. This can be further discussed at office visit.
- Office visit with me September 01, 2025.
Copy to: Dr Phu Doran
[2025-05-29] MEDS: TOPROL XL 12.5 MG PO (14:19)
--- NOTE | 2025-05-29 17:03 | W.PN.UPDATE ---
Update Note
Progress Note Update
Pt seen post PFA. Right groin site without ht/bleeding, non tender. OOB ambulating. Post EKG NSR w/1st deg AVB as before, no acute changes. Resume eliquis tonight a usual time. Will discontinue amiodarone at this time. Followup with Dr. Akhtar
as scheduled. Home today if groin site/tele remain stable.
[2025-05-30 08:59] LABS: Glucose - Point of Care 190 mg/dl (70-99)
== END 2025-05-29 17:00 | disposition home or self-care (01) ==
LOC: CATH 07:49
PROVIDERS: ATTENDING PHYSICIAN Internal Medicine Cardiovascular Disease; FAMILY PHYSICIAN Internal Medicine Geriatric Medicine
DX: I48.0 Paroxysmal atrial fibrillation (principal); I48.3 Typical atrial flutter; Z79.01 Long term (current) use of anticoagulants
CPT/HCPCS: 36415; 75572; 80053; 82962; 83735; 85025; 85347; 85610; 86850; 86900; 86901; 93005; 93655; 93656; 93657; C1730; C1732; C1733; C1766; C1769; C1892; C1894; Q9967